=== PATIENT | male | born 1935 | race Caucasian/White ===

== ENCOUNTER 2016-07-06 12:00 | Inpatient (IN) | payer MEDICARE ==
[~2016-07-06] VITALS: Ht 175.3 cm; Wt 79.1 kg
[2016-07-06] VITALS (7 sets, daily range): BP systolic 114–145; BP diastolic 67–81; PULSE 66–99; RESP 16–18; TEMP 97.5–97.9; O2SAT 91–97
[~2016-07-06 12:00] MED LIST: GEMF600T PO
[2016-07-06] MEDS ORDERED: SODIUM CHLOR 0.9% 1000 ML INJ 1,000 ML IV SCH (12:07)
[2016-07-06] MEDS ORDERED: SODIUM CHLORIDE 0.9% FLUSH 5 ML FLUSH IVF PRN (12:15)
[2016-07-06] MEDS ORDERED: ONDANSETRON HCL 4 MG/2 ML VIAL IVP ONE (12:15)
[2016-07-06 12:49] LABS: AUTOMATED NEUTROPHIL # 2.9 TH/MM3 (1.8-7.7); BASOPHIL % 0.4 % (0.0-2.0); EOSINOPHIL # 0.1 TH/MM3 (0-0.4); HEMATOCRIT 40.1 % (39.0-51.0); HEMO FLAGS DIFF FINAL; LYMPH % 29.1 % (9.0-44.0); LYMPHOCYTE # 1.4 TH/MM3 (1.0-4.8); MEAN CELL VOLUME 91.1 FL (80.0-100.0); MEAN CORPUSCULAR HEMOGLOBIN 31.5 PG (27.0-34.0); MEAN CORPUSCULAR HGB CONC 34.6 % (32.0-36.0); MONO % 6.3 % (0.0-8.0); NEUT % 62.2 % (16.0-70.0); PLATELET COUNT 169 TH/MM3 (150-450); RED BLOOD COUNT 4.41 MIL/MM3 (4.50-5.90); WHITE BLOOD COUNT 4.7 TH/MM3 (4.0-11.0)
[2016-07-06 12:54] LABS: APTT (PATIENT) 23.9 SEC (24.3-30.1); PROTHROMBIN TIME - PATIENT 11.1 SEC (9.8-11.6)
[2016-07-06 13:09] LABS: ALT (GPT) 16 U/L (12-78); ANION GAP 8 MEQ/L (5-15); AST (GOT) 15 U/L (15-37); BLOOD UREA NITROGEN 15 MG/DL (7-18); CHLORIDE 108 MEQ/L (98-107); GLOMERULAR FILTRATION RATE 60 ML/MIN (>89); POTASSIUM 3.8 MEQ/L (3.5-5.1); SODIUM (NA) 139 MEQ/L (136-145)
[2016-07-06 13:12] LABS: ALKALINE PHOSPHATASE 87 U/L (45-117); TOTAL BILIRUBIN ADULT 0.5 MG/DL (0.2-1.0)
[2016-07-06 13:18] LABS: BACTERIA, URINE RARE /hpf; BLOOD, URINE MOD (NEG); GLUCOSE,URINE NEG (NEG); KETONE, URINE NEG (NEG); NITRITE,URINE NEG (NEG); PH, URINE 5.5 (5.0-8.5); URINE COLOR YELLOW (YELLW/STRAW)
[2016-07-06 13:20] LABS: COMMENT (UR) CULT NOT INDICATED; CULTURE IF INDICATED CULT NOT INDICATED
--- NOTE | 2016-07-06 13:22 | PD ---
HPI Chief Complaint: General Weakness Time Seen by Provider: 12:07 Travel History International Travel<30 days: No Contact w/Intl Traveler<30days: No Traveled to known affect area: No History of Present Illness HPI This is an 81-year-old male who has a history of prostate currently not receiving treatment who presents to the emergency department with vomiting for 2 days, constant, associated with generalized weakness, lightheadedness and fatigue. He says his vomiting has been bilious. He denies fevers or chills. He says he has epigastric abdominal pain, moderate severity. He says that 9 months ago he was being treated for prostate cancer by he elected to discontinue treatment. For the last a month he's been feeling very fatigued and lethargic and has had decreased appetite. PFSH Past Medical History Hx Anticoagulant Therapy: Yes (325 ASA DAILY) Blood Disorders: No Heart Rhythm Problems: No Cancer: Yes (prostate) Cardiovascular Problems: No High Cholesterol: Yes Chest Pain: No Congestive Heart Failure: No Diminished Hearing: No Endocrine: No Genitourinary: Yes (ENLARGED PROSTATE) Immune Disorder: No Musculoskeletal: No Neurologic: No Psychiatric: No Reproductive: No Respiratory: No Past Surgical History Genitourinary Surgery: Yes (PROSTATE BIOPSY) Social History Alcohol Use: No Tobacco Use: No Substance Use: No Allergies-Medications (Allergen,Severity, Reaction): Coded Allergies: No Known Allergies (Unverified , 04/28/16) Reported Meds & Prescriptions Reported Meds & Active Scripts Active Reported Gemfibrozil 600 Mg Tab 600 Mg PO BIDAC Take 30 minutes prior to breakfast and dinner. Review of Systems Except as stated in HPI: all other systems reviewed are Neg Physical Exam Narrative GENERAL: Frail elderly male, ill-appearing SKIN: Warm and dry. HEAD: Atraumatic. Normocephalic. EYES: Pupils equal and round. No injection or drainage. ENT: Dry mucous membranes. NECK: Trachea midline. CARDIOVASCULAR: Regular rate and rhythm. No murmur appreciated. RESPIRATORY: Clear to auscultation. Breath sounds equal bilaterally. GASTROINTESTINAL: Abdomen soft, mildly tender to palpation in the epigastrium with no rebound or guarding. MUSCULOSKELETAL: No obvious deformities. NEUROLOGICAL: Awake and alert. No obvious cranial nerve deficits. Moving all extremities. PSYCHIATRIC: Appropriate mood and affect; insight and judgment normal. Data Data Last Documented VS Vital Signs Date Time Temp Pulse Resp B/P Pulse Ox O2 Delivery O2 Flow Rate FiO2 07/06/16 13:04 95 16 114/81 95 Nasal Cannula 2 07/06/16 12:03 97.5 Orders Complete Blood Count With Diff (07/06/16 12:07) Comprehensive Metabolic Panel (07/06/16 12:07) Lipase (07/06/16 12:07) Lactic Acid (07/06/16 12:07) Prothrombin Time / Inr (Pt) (07/06/16 12:07) Act Partial Throm Time (Ptt) (07/06/16 12:07) Urinalysis - C+S If Indicated (07/06/16 12:07) Ct Abd/Pel W Iv Contrast(Rout) (07/06/16 12:07) Iv Access Insert/Monitor (07/06/16 12:07) Ecg Monitoring (07/06/16 12:07) Oximetry (07/06/16 12:07) Ondansetron Inj (Zofran Inj) (07/06/16 12:15) Sodium Chlor 0.9% 1000 Ml Inj (Ns 1000 M (07/06/16 12:07) Sodium Chloride 0.9% Flush (Ns Flush) (07/06/16 12:15) Electrocardiogram (07/06/16 ) Troponin I (07/06/16 12:07) Cath For Specimen (07/06/16 12:07) Chest, Single Ap (07/06/16 ) Iohexol 350 Inj (Omnipaque 350 Inj) (07/06/16 14:10) Admit Order (Ed Use Only) (07/06/16 16:02) Labs Laboratory Tests Test 07/06/16 07/06/16 07/06/16 12:21 12:24 12:32 White Blood Count 4.7 TH/MM3 Red Blood Count 4.41 MIL/MM3 Hemoglobin 13.9 GM/DL Hematocrit 40.1 % Mean Corpuscular Volume 91.1 FL Mean Corpuscular Hemoglobin 31.5 PG Mean Corpuscular Hemoglobin 34.6 % Concent Red Cell Distribution Width 14.0 % Platelet Count 169 TH/MM3 Mean Platelet Volume 7.5 FL Neutrophils (%) (Auto) 62.2 % Lymphocytes (%) (Auto) 29.1 % Monocytes (%) (Auto) 6.3 % Eosinophils (%) (Auto) 2.0 % Basophils (%) (Auto) 0.4 % Neutrophils # (Auto) 2.9 TH/MM3 Lymphocytes # (Auto) 1.4 TH/MM3 Monocytes # (Auto) 0.3 TH/MM3 Eosinophils # (Auto) 0.1 TH/MM3 Basophils # (Auto) 0.0 TH/MM3 CBC Comment DIFF FINAL Differential Comment Prothrombin Time 11.1 SEC Prothromb Time International 1.0 RATIO Ratio Activated Partial 23.9 SEC Thromboplast Time Sodium Level 139 MEQ/L Potassium Level 3.8 MEQ/L Chloride Level 108 MEQ/L Carbon Dioxide Level 23.0 MEQ/L Anion Gap 8 MEQ/L Blood Urea Nitrogen 15 MG/DL Creatinine 1.17 MG/DL Estimat Glomerular Filtration 60 ML/MIN Rate Random Glucose 170 MG/DL Calcium Level 8.2 MG/DL Total Bilirubin 0.5 MG/DL Aspartate Amino Transf 15 U/L (AST/SGOT) Alanine Aminotransferase 16 U/L (ALT/SGPT) Alkaline Phosphatase 87 U/L Troponin I LESS THAN 0.02 NG/ML Total Protein 6.6 GM/DL Albumin 3.2 GM/DL Lipase 231 U/L Lactic Acid Level 1.8 mmol/L Urine Color YELLOW Urine Turbidity CLEAR Urine pH 5.5 Urine Specific [place] 1.009 Urine Protein TRACE mg/dL Urine Glucose (UA) NEG mg/dL Urine Ketones NEG mg/dL Urine Occult Blood MOD Urine Nitrite NEG Urine Bilirubin NEG Urine Urobilinogen LESS THAN 2.0 MG/DL Urine Leukocyte Esterase NEG Urine RBC 18 /hpf Urine WBC LESS THAN 1 /hpf Urine Bacteria RARE /hpf Microscopic Urinalysis Comment CULT NOT INDICATED MDM Medical Decision Making Medical Screen Exam Complete: Yes Emergency Medical Condition: Yes Interpretation(s) Afebrile, no tachycardia, normotensive No leukocytosis Electrolytes within normal limits Lactic acid 1.8 Troponin normal Lipase normal Urinalysis: Red blood cells in the urine Differential Diagnosis Pancreatitis, cholecystitis, gastritis, gastroenteritis, gastric outlet obstruction, bowel obstruction Narrative Course This is an 81-year-old male who presents to the emergency department with vomiting and generalized weakness for the past 2 days. He is very well- appearing on exam, dry with skin tenting and dry mucous membranes. He was placed on a monitor and an IV was established. He was given IV hydration and antiemetics. He continues to vomit in the emergency department. He has a normal neurologic exam and doesn't complain of headache. CT abdomen and pelvis was obtained which demonstrates multiple incidental findings but no etiology of the patient's symptoms. I think it's reasonable to place the patient in observation for continued IV hydration and symptomatic control. Diagnosis Primary Impression: Vomiting Qualified Code: R11.14 - Bilious vomiting with nausea Admitting Information Admitting Physician Requests: Observation Kelsey Arguelles MD Jul 06, 2016 13:22
[2016-07-06] MEDS ORDERED: IOHEXOL 350 MG/ML 10 ML VIAL (for RAD DIAG) IV ONE (14:10)
--- NOTE | 2016-07-06 15:03 | RADRPT ---
EXAM DATE/TIME: 07/06/2016 13:23 [facility] COMPARISON: No previous studies available for comparison. INDICATIONS : Short of breath, vomiting. MEDICAL HISTORY : None. SURGICAL HISTORY : CABG. ENCOUNTER: Initial ACUITY: 1 day PAIN SCORE: 0/10 LOCATION: Left chest FINDINGS: Median sternotomy wires from previous CABG are noted. Heart is within normal limits in size. There is no evidence of acute air space disease significant ingestion or pleural effusion. CONCLUSION: No acute disease. Status post CABG Jared Wilcox MD on July 06, 2016 at 15:01 Board Certified Radiologist. This report was verified electronically.
--- NOTE | 2016-07-06 15:31 | RADRPT ---
EXAM DATE/TIME: 07/06/2016 14:00 [facility] COMPARISON: No previous studies available for comparison. INDICATIONS : Nausea and vomiting. Weakness. IV CONTRAST: 85 cc Omnipaque 350 (iohexol) IV ORAL CONTRAST: No oral contrast ingested. RADIATION DOSE: 9.96 CTDIvol (mGy) MEDICAL HISTORY : Carcinoma, prostate. SURGICAL HISTORY : Cholecystectomy. ENCOUNTER: Initial ACUITY: 2 days PAIN SCALE: 0/10 LOCATION: Abdomen TECHNIQUE: Volumetric scanning of the abdomen and pelvis was performed. Using automated exposure control and adjustment of the mA and/or kV according to patient size, radiation dose was kept as low as reasonably achievable to obtain optimal diagnostic quality images. FINDINGS: There is a 1 cm hyperdensity seen at the posterior medial superior aspect of the right lobe of the liver. This is nonspecific. The patient is status post cholecystectomy. There are come coarse calcifications seen along the posterior margin of the spleen. This is thought to be chronic. No mass effect is seen. The pancreas and adrenal glands are normal. There is a 2 cm cyst at the mid left kidney. There do appear to be areas of cortical thinning of lateral mid right kidney likely fro m prior renal infarction. The kidneys appear otherwise normal. There is no hydronephrosis or signifi cant surrounding inflammatory change. There is a 4.7 cm abdominal aortic aneurysm. There is no sign of rupture. There is aneurysmal dilat ation of the common iliac arteries. There are diverticula seen in the colon being most numerous in the sigmoid region. There is some hyp ertrophy or the sigmoid colon. Significant surrounding inflammatory change is not clearly seen. Pro static calcifications are present. The patient does have 1.4 cm area of calcification at the posteri or left side of the bladder likely representing a bladder stone. There is some increased parenchymal density identified at the lung bases being much more prominent on the left. There is some degenerative change at the lower lumbar spine. There does appear to be a s ubacute area of fracturing at the inferior right pubic rami. There is some callus formation. CONCLUSION: 1. 4.7 cm abdominal aortic aneurysm without rupture. 2. Nonspecific 1 cm hyperdensity identified in the liver. Statistically it likely represents a cyst or hemangioma but again it is nonspecific on this solitary CT examination. 3. Status post cholecystectomy. 4. Subacute fracturing at the anterior inferior pubic rami on the right. This could be an insufficie ncy fracture if the patient does not have a corresponding history of trauma. 5. 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 6. Colonic diverticula being most numerous in the sigmoid region. There is some hypertrophy in the si gmoid region. Cj Lo MD on July 06, 2016 at 15:16 Board Certified Radiologist. This report was verified electronically.
[2016-07-06] MEDS ORDERED: ONDANSETRON HCL 4 MG/2 ML VIAL IV PUSH PRN (16:15)
[2016-07-06] MEDS: PANTOPRAZOLE SODIUM 40 MG VIAL IV PUSH SCH (16:22)
[2016-07-06] MEDS: SODIUM CHLOR 0.9% 1000 ML INJ 1,000 ML IV SCH (16:22)
--- NOTE | 2016-07-06 17:02 | HHI.HP ---
HPI Service [facility] Primary Care Physician Unknown Admission Diagnosis vomiting Diagnoses: Chief Complaint: WEAKNESS, N/V (Linsey Dumas) Travel History International Travel<30 Days: No Contact w/Intl Traveler <30 Da: No Traveled to Known Affected Are: No (Linsey Dumas) History of Present Illness This is a pleasant 80-year-old female with hx of Ramin 8 prostate cancer in the spring, metastatic work up negative. Patient was started on androgen deprivation therapy with Lupron injections and was only able to complete 4 months of therapy but he stopped as he developed generalized weakness. His PSA has increased but he has continued to refuse Lupron injections. He follows up with Dr. Christianson and Dr. Mi. Most recently, he went to see Dr. Mi and he discussed possible surgery or radiation versus watchful waiting. Pt. opted to just monitor as he is very weak and fatigue. He doesn't want to continue following up with Dr. Mi. Dr. Mi checked B12 and gave him a short trial of B12 with minimal response. Pt presented to ED weakness and nausea and vomiting for the last 2 days. He has been dizzy, poor appetite. No abdominal pain, vomitus is bile colored, no diarrhea, no urinary symptoms other than urinary frequency which is unchanged. No fever, no chills. Has noted mild dyspnea with exertion, no CP. 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 He lives alone but has a significant other. States he takes care of his house and was very active. He is very frustrated about the weakness, has seen PCP and has no definitive answers. Two night ago he climbed onto his roof and after that was very tired and had diffuse body aches. Denies any falls, no recent injuries. Laboratory work up completed in the ED is unremarkable, UA without evidence of infection. Hemodynamically stable, no fevers. Last Impressions Abdomen/Pelvis CT 07/06/16 1207 Signed Impressions: Service Date/Time: Wednesday, July 06, 2016 14:00 - CONCLUSION: 1. 4.7 cm abdominal aortic aneurysm without rupture. 2. Nonspecific 1 cm hyperdensity identified in the liver. Statistically it likely represents a cyst or hemangioma but again it is nonspecific on this solitary CT examination. 3. Status post cholecystectomy. 4. Subacute fracturing at the anterior inferior pubic rami on the right. This could be an insufficiency fracture if the patient does not have a corresponding history of trauma. 5. 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 6. Colonic diverticula being most numerous in the sigmoid region. There is some hypertrophy in the sigmoid region. Cj Lo MD Chest X-Ray 07/06/16 0000 Signed Impressions: Service Date/Time: Wednesday, July 06, 2016 13:23 - CONCLUSION: No acute disease. Status post CABG Jared Wilcox MD Review of previous medical records noted a CT of abdomen as OP in August and showed AA, 4.5 cm. As noted above, subacute fracture of right anterior pubic rami noted, pt denies any recent injury, no falls. Pt. was given IVF, antiemetics. He is feeling improved, no longer having nausea. Pt. admitted for further evaluation and treatment. (Linsey Dumas) Review of Systems Constitutional: COMPLAINS OF: Fatigue, Dizziness, Change in appetite, DENIES: Diaphoretic episodes, Fever, Weight gain, Weight loss, Chills, Night Sweats Endocrine: DENIES: Heat/cold intolerance, Polydipsia, Polyuria, Polyphagia Eyes: DENIES: Blurred vision, Diplopia, Eye inflammation, Eye pain, Vision loss , Photosensitivity, Double Vision Ears, nose, mouth, throat: DENIES: Tinnitus, Hearing loss, Vertigo, Nasal discharge, Oral lesions, Throat pain, Hoarseness, Ear Pain, Running Nose, Epistaxis, Sinus Pain, Toothache, Odynophagia Respiratory: DENIES: Apneas, Cough, Snoring, Wheezing, Hemoptysis, Sputum production, Shortness of breath Cardiovascular: COMPLAINS OF: Dyspnea on Exertion, DENIES: Chest pain, Palpitations, Syncope, PND, Lower Extremity Edema, Orthopnea, Claudication Gastrointestinal: COMPLAINS OF: Nausea, Vomiting, DENIES: Abdominal pain, Black stools, Bloody stools, Constipation, Diarrhea, Difficulty Swallowing, Anorexia Genitourinary: DENIES: Sexual dysfunction, Urinary frequency, Urinary incontinence, Urgency, Hematuria, Dysuria, Nocturia, Penile Discharge, Testicular Pain, Testicular Swelling Musculoskeletal: DENIES: Joint pain, Muscle aches, Stiffness, Joint Swelling, Back pain, Neck pain Integumentary: DENIES: Abnormal pigmentation, Nail changes, Pruritus, Rash Hematologic/lymphatic: DENIES: Bruising, Lymphadenopathy Immunologic/allergic: DENIES: Eczema, Urticaria Neurologic: DENIES: Abnormal gait, Headache, Localized weakness, Paresthesias, Seizures, Speech Problems, Tremor, Poor Balance Psychiatric: DENIES: Anxiety, Confusion, Mood changes, Depression, Hallucinations, Agitation, Suicidal Ideation, Homicidal Ideation, Delusions ( Linsey Dumas) Past Family Social History Past Medical History Prostate cancer dx 2015, completed androgen deprivation therapy with Lupron injections and was only able to complete 4 months of therapy due to severe weakness. Recommended to f/u oncology Dr. Mi for possible chemo but he declined. Had CT that did not show metastasis Hyperlipidemia cataracts. Admitted with hematuria after TRUS in August 2015. 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 atrial fibrillation Past Surgical History Cholecystectomy TRUS with biopsy 08/21/2015 CABG right eye cataract removal Reported Medications Reported Meds & Active Scripts Active Reported Gemfibrozil 600 Mg Tab 600 Mg PO BIDAC Take 30 minutes prior to breakfast and dinner. (Linsey Dumas) Allergies: Coded Allergies: No Known Allergies (Unverified , 04/28/16) Active Ordered Medications Inpatient Medications IV Flush 2 ml 2 ml UNSCH PRN IVF FLUSH AFTER USING IV ACCESS; Start 07/06/16 at 12:15 Ondansetron HCl (Zofran Inj) 4 mg Q8HR PRN IV PUSH N/V; Start 07/06/16 at 16:15 Pantoprazole Sodium (Protonix Inj) 40 mg Q24H IV PUSH Last administered on 07/06t 16:22; Start 07/06/16 at 16:15 Sodium Chloride (NS 1000 ml Inj) 1,000 ml @ 100 mls/hr Q10H IV Last administered on 07/06/16 16:22; Start 07/06/16 at 16:15 Family History Mother from aneurysm complications Father from Alzheimer complications Social History 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 He smoked 1-1/2 pack per day for 20 years, quit in 1983. No alcohol,or illegal drug use. (Linsey Dumas) Physical Exam Vital Signs Vital Signs Date Time Temp Pulse Resp B/P Pulse Ox O2 Delivery O2 Flow Rate FiO2 07/06/16 16:17 81 18 137/78 95 Room Air 07/06/16 13:04 95 16 114/81 95 Nasal Cannula 2 07/06/16 12:28 94 Nasal Cannula 2 07/06/16 12:17 99 16 145/81 93 Nasal Cannula 2 07/06/16 12:03 97.5 66 16 145/81 91 Physical Exam GENERAL: This is a well-nourished, well-developed patient, in no apparent distress. SKIN: No rashes, ecchymoses or lesions. Cool and dry. HEAD: Atraumatic. Normocephalic. No temporal or scalp tenderness. EYES: Right eyer with erythematous conjunctive, blind. Left eye with reactive pupil. ENT: Nose without bleeding, purulent drainage or septal hematoma. Throat without erythema, tonsillar hypertrophy or exudate. Uvula midline. Airway patent. NECK: Trachea midline. No JVD or lymphadenopathy. Supple, nontender, no meningeal signs. CARDIOVASCULAR: Regular rate and rhythm without murmurs, gallops, or rubs. RESPIRATORY: Clear to auscultation. Breath sounds equal bilaterally. No wheezes , rales, or rhonchi. GASTROINTESTINAL: Abdomen soft, non-tender, nondistended. No hepato-splenomegaly , or palpable masses. No guarding. MUSCULOSKELETAL: Extremities without clubbing, cyanosis, or edema. No joint tenderness, effusion, or edema noted. No calf tenderness. Negative Homans sign bilaterally. NEUROLOGICAL: Awake and alert. Cranial nerves II through XII intact. Motor and sensory grossly within normal limits. Five out of 5 muscle strength in all muscle groups. Normal speech. Laboratory Laboratory Tests Test 07/06/16 07/06/16 07/06/16 12:21 12:24 12:32 White Blood Count 4.7 Red Blood Count 4.41 Hemoglobin 13.9 Hematocrit 40.1 Mean Corpuscular Volume 91.1 Mean Corpuscular Hemoglobin 31.5 Mean Corpuscular Hemoglobin 34.6 Concent Red Cell Distribution Width 14.0 Platelet Count 169 Mean Platelet Volume 7.5 Neutrophils (%) (Auto) 62.2 Lymphocytes (%) (Auto) 29.1 Monocytes (%) (Auto) 6.3 Eosinophils (%) (Auto) 2.0 Basophils (%) (Auto) 0.4 Neutrophils # (Auto) 2.9 Lymphocytes # (Auto) 1.4 Monocytes # (Auto) 0.3 Eosinophils # (Auto) 0.1 Basophils # (Auto) 0.0 CBC Comment DIFF FINAL Differential Comment Prothrombin Time 11.1 Prothromb Time International 1.0 Ratio Activated Partial 23.9 Thromboplast Time Sodium Level 139 Potassium Level 3.8 Chloride Level 108 Carbon Dioxide Level 23.0 Anion Gap 8 Blood Urea Nitrogen 15 Creatinine 1.17 Estimat Glomerular Filtration 60 Rate Random Glucose 170 Calcium Level 8.2 Total Bilirubin 0.5 Aspartate Amino Transf 15 (AST/SGOT) Alanine Aminotransferase 16 (ALT/SGPT) Alkaline Phosphatase 87 Troponin I LESS THAN 0.02 Total Protein 6.6 Albumin 3.2 Lipase 231 Lactic Acid Level 1.8 Urine Color YELLOW Urine Turbidity CLEAR Urine pH 5.5 Urine Specific [place] 1.009 Urine Protein TRACE Urine Glucose (UA) NEG Urine Ketones NEG Urine Occult Blood MOD Urine Nitrite NEG Urine Bilirubin NEG Urine Urobilinogen LESS THAN 2.0 Urine Leukocyte Esterase NEG Urine RBC 18 Urine WBC LESS THAN 1 Urine Bacteria RARE Microscopic Urinalysis Comment CULT NOT INDICATED (iLnsey Dumas) Result Diagram: 07/06/16 1221 07/06/16 1221 Imaging Last Impressions Abdomen/Pelvis CT 07/06/16 1207 Signed Impressions: Service Date/Time: Wednesday, July 06, 2016 14:00 - CONCLUSION: 1. 4.7 cm abdominal aortic aneurysm without rupture. 2. Nonspecific 1 cm hyperdensity identified in the liver. Statistically it likely represents a cyst or hemangioma but again it is nonspecific on this solitary CT examination. 3. Status post cholecystectomy. 4. Subacute fracturing at the anterior inferior pubic rami on the right. This could be an insufficiency fracture if the patient does not have a corresponding history of trauma. 5. 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 6. Colonic diverticula being most numerous in the sigmoid region. There is some hypertrophy in the sigmoid region. Cj Lo MD Chest X-Ray 07/06/16 0000 Signed Impressions: Service Date/Time: Wednesday, July 06, 2016 13:23 - CONCLUSION: No acute disease. Status post CABG Jared Wilcox MD (Linsey Dumas) Assessment and Plan Problem List: (1) Weakness (2) Nausea & vomiting (3) Dyspnea (4) Prostate cancer (5) Abdominal aneurysm (6) Blind right eye (7) Hx of atrial fibrillation, no current medication (8) Anorexia Assessment and Plan Admit to Dr. Schaffer 81 year old male with hx of prostate cancer, was receiving Lupron injections x 4 months which he stopped due to severe weakness. He has declined further treatment including surgery, radiation and chemo. Presented to ED with worsening weakness, developed N&V x 2 days, dizziness, [place]. Noted dehydrated, given IVF and antiemetics. Work up so far negative. -Continue with IVF -monitor electrolytes -PT for evaluation -Antiemetics PRN -check 2D echo -Clear liquid diet Weakness poss. secondary to Lupron -PT eval -Check B12, TSH Prostate cancer, no longer having treatments -monitor for now. AA, 4.7 cm, stable -monitor BP CT findings of subacute fracturing at the anterior inferior pubic rami on the right, no recent falls or injuries -PT eval Hx afib, stable, SR -monitor Possible depression, secondary to declining health -monitor for now CM for discharge planning for [facility] Home medications reviewed, initiated as indicated SCDs for DVT prophylaxis Plan of care discussed with pt, attending and RN. Further management of the patient will be dependent on the hospital course. This patient was seen by myself and Dr. Schaffer, this H/P is written on his behalf. (Linsey Dumas) Assessment and Plan PT is seen & Examined d/w PT d/w ER d/w Linsey see orders see H&P will f/u Paul Schaffer MD Jul 06, 2016 17:48 (Paul Schaffer MD) Problem Qualifiers (1) Nausea & vomiting: Qualified Code: R11.2 - Non-intractable vomiting with nausea, unspecified vomiting type (2) Dyspnea: Qualified Code: R06.09 - Dyspnea on exertion Linsey Dumas Jul 06, 2016 17:02 Paul Schaffer MD Jul 07, 2016 09:29
--- NOTE | 2016-07-06 17:48 | HHI.PR ---
Objective Objective Results - Vital Signs Date Time Temp Pulse Resp B/P Pulse Ox O2 Delivery O2 Flow Rate FiO2 07/06/16 16:17 81 18 137/78 95 Room Air 07/06/16 13:04 95 16 114/81 95 Nasal Cannula 2 07/06/16 12:28 94 Nasal Cannula 2 07/06/16 12:17 99 16 145/81 93 Nasal Cannula 2 07/06/16 12:03 97.5 66 16 145/81 91 Result Diagram: 07/06/16 1221 07/06/16 1221 Other Results Laboratory Tests Test 07/06/16 07/06/16 07/06/16 12:21 12:24 12:32 White Blood Count 4.7 Red Blood Count 4.41 Hemoglobin 13.9 Hematocrit 40.1 Mean Corpuscular Volume 91.1 Mean Corpuscular Hemoglobin 31.5 Mean Corpuscular Hemoglobin 34.6 Concent Red Cell Distribution Width 14.0 Platelet Count 169 Mean Platelet Volume 7.5 Neutrophils (%) (Auto) 62.2 Lymphocytes (%) (Auto) 29.1 Monocytes (%) (Auto) 6.3 Eosinophils (%) (Auto) 2.0 Basophils (%) (Auto) 0.4 Neutrophils # (Auto) 2.9 Lymphocytes # (Auto) 1.4 Monocytes # (Auto) 0.3 Eosinophils # (Auto) 0.1 Basophils # (Auto) 0.0 CBC Comment DIFF FINAL Differential Comment Prothrombin Time 11.1 Prothromb Time International 1.0 Ratio Activated Partial 23.9 Thromboplast Time Sodium Level 139 Potassium Level 3.8 Chloride Level 108 Carbon Dioxide Level 23.0 Anion Gap 8 Blood Urea Nitrogen 15 Creatinine 1.17 Estimat Glomerular Filtration 60 Rate Random Glucose 170 Calcium Level 8.2 Total Bilirubin 0.5 Aspartate Amino Transf 15 (AST/SGOT) Alanine Aminotransferase 16 (ALT/SGPT) Alkaline Phosphatase 87 Troponin I LESS THAN 0.02 Total Protein 6.6 Albumin 3.2 Lipase 231 Lactic Acid Level 1.8 Urine Color YELLOW Urine Turbidity CLEAR Urine pH 5.5 Urine Specific [place] 1.009 Urine Protein TRACE Urine Glucose (UA) NEG Urine Ketones NEG Urine Occult Blood MOD Urine Nitrite NEG Urine Bilirubin NEG Urine Urobilinogen LESS THAN 2.0 Urine Leukocyte Esterase NEG Urine RBC 18 Urine WBC LESS THAN 1 Urine Bacteria RARE Microscopic Urinalysis Comment CULT NOT INDICATED Physical Exam Physical Exam PT is seen & Examined d/w PT d/w ER d/w Linsey see orders see H&P will f/u Paul Schaffer MD Jul 06, 2016 17:48
[2016-07-07] MEDS: SODIUM CHLOR 0.9% 1000 ML INJ 1,000 ML IV SCH ×2 (01:20→16:28)
[2016-07-07 04:35] LABS: HEMATOCRIT 37.6 % (39.0-51.0); MEAN CELL VOLUME 91.6 FL (80.0-100.0); MEAN CORPUSCULAR HEMOGLOBIN 31.8 PG (27.0-34.0); MEAN CORPUSCULAR HGB CONC 34.7 % (32.0-36.0); PLATELET COUNT 182 TH/MM3 (150-450); RED CELL DISTRIBUTION WIDTH 14.2 % (11.6-17.2); REVIEW FLAG FINAL; WHITE BLOOD COUNT 6.2 TH/MM3 (4.0-11.0)
[2016-07-07 04:46] VITALS: BP 97/53; PULSE 94; RESP 16; TEMP 97.4; O2SAT 93
[2016-07-07 08:06] VITALS: BP 108/62; PULSE 92; RESP 18; TEMP 98.1; O2SAT 93
--- NOTE | 2016-07-07 08:10 | HHI.PR ---
Subjective Remarks no n/v feels tired afraid to get up and walk "I don't have strength" states he has felt some depression over losing sight but denies SI/HI no fever no cp no sob no abd. pain tolerated liquids well voiding ok Objective Objective Results - Vital Signs Date Time Temp Pulse Resp B/P Pulse Ox O2 Delivery O2 Flow Rate FiO2 07/07/16 04:46 97.4 94 16 97/53 93 07/06/16 23:39 97.9 92 16 120/76 96 07/06/16 20:31 97.5 88 18 129/67 97 07/06/16 16:17 81 18 137/78 95 Room Air 07/06/16 13:04 95 16 114/81 95 Nasal Cannula 2 07/06/16 12:28 94 Nasal Cannula 2 07/06/16 12:17 99 16 145/81 93 Nasal Cannula 2 07/06/16 12:03 97.5 66 16 145/81 91 Result Diagram: 07/07/16 0351 07/06/16 1221 Imaging Last Impressions Abdomen/Pelvis CT 07/06/16 1207 Signed Impressions: Service Date/Time: Wednesday, July 06, 2016 14:00 - CONCLUSION: 1. 4.7 cm abdominal aortic aneurysm without rupture. 2. Nonspecific 1 cm hyperdensity identified in the liver. Statistically it likely represents a cyst or hemangioma but again it is nonspecific on this solitary CT examination. 3. Status post cholecystectomy. 4. Subacute fracturing at the anterior inferior pubic rami on the right. This could be an insufficiency fracture if the patient does not have a corresponding history of trauma. 5. 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 6. Colonic diverticula being most numerous in the sigmoid region. There is some hypertrophy in the sigmoid region. Cj Lo MD Chest X-Ray 07/06/16 0000 Signed Impressions: Service Date/Time: Wednesday, July 06, 2016 13:23 - CONCLUSION: No acute disease. Status post CABG Jared Wilcox MD Other Results Laboratory Tests Test 07/06/16 07/06/16 07/06/16 07/07/16 12:21 12:24 12:32 03:51 White Blood Count 4.7 6.2 Red Blood Count 4.41 4.10 Hemoglobin 13.9 13.0 Hematocrit 40.1 37.6 Mean Corpuscular Volume 91.1 91.6 Mean Corpuscular Hemoglobin 31.5 31.8 Mean Corpuscular Hemoglobin 34.6 34.7 Concent Red Cell Distribution Width 14.0 14.2 Platelet Count 169 182 Mean Platelet Volume 7.5 7.4 Neutrophils (%) (Auto) 62.2 Lymphocytes (%) (Auto) 29.1 Monocytes (%) (Auto) 6.3 Eosinophils (%) (Auto) 2.0 Basophils (%) (Auto) 0.4 Neutrophils # (Auto) 2.9 Lymphocytes # (Auto) 1.4 Monocytes # (Auto) 0.3 Eosinophils # (Auto) 0.1 Basophils # (Auto) 0.0 CBC Comment DIFF FINAL Differential Comment Prothrombin Time 11.1 Prothromb Time International 1.0 Ratio Activated Partial 23.9 Thromboplast Time Sodium Level 139 Potassium Level 3.8 Chloride Level 108 Carbon Dioxide Level 23.0 Anion Gap 8 Blood Urea Nitrogen 15 Creatinine 1.17 Estimat Glomerular Filtration 60 Rate Random Glucose 170 Calcium Level 8.2 Total Bilirubin 0.5 Aspartate Amino Transf 15 (AST/SGOT) Alanine Aminotransferase 16 (ALT/SGPT) Alkaline Phosphatase 87 Troponin I LESS THAN 0.02 Total Protein 6.6 Albumin 3.2 Lipase 231 Lactic Acid Level 1.8 Urine Color YELLOW Urine Turbidity CLEAR Urine pH 5.5 Urine Specific [place] 1.009 Urine Protein TRACE Urine Glucose (UA) NEG Urine Ketones NEG Urine Occult Blood MOD Urine Nitrite NEG Urine Bilirubin NEG Urine Urobilinogen LESS THAN 2.0 Urine Leukocyte Esterase NEG Urine RBC 18 Urine WBC LESS THAN 1 Urine Bacteria RARE Microscopic Urinalysis Comment CULT NOT INDICATED Vitamin B12 Level 546 Thyroid Stimulating Hormone 2.040 3rd Gen Random Cortisol 14.6 ROS General: Fatigue, Weakness, No: Other HEENT: No: Sore Throat, Dysphagia Cardiac: No: Chest Pain, Edema, Palpitations Pulmonary: No: Cough, SOB, Wheezing GI: No: Abdominal Pain, BM, Diarrhea, N/V /AUTOPSY ASSISTANT: No: Dysuria, Urgency Neuro/MS: No: Lightheaded, Confusion Psych: No: Anxiety, Depression Skin: No: Itching, Rash Physical Exam Physical Exam GENERAL: This is a well-nourished, well-developed patient, in no apparent distress. SKIN: No rashes, ecchymoses or lesions. Cool and dry. HEAD: Atraumatic. Normocephalic. No temporal or scalp tenderness. EYES: Right eyer with erythematous conjunctive, blind. Left eye with reactive pupil. ENT: Nose without bleeding, purulent drainage or septal hematoma. Throat without erythema, tonsillar hypertrophy or exudate. Uvula midline. Airway patent. NECK: Trachea midline. No JVD or lymphadenopathy. Supple, nontender, no meningeal signs. CARDIOVASCULAR: Regular rate and rhythm without murmurs, gallops, or rubs. RESPIRATORY: Clear to auscultation. Breath sounds equal bilaterally. No wheezes , rales, or rhonchi. GASTROINTESTINAL: Abdomen soft, non-tender, nondistended. No hepato-splenomegaly , or palpable masses. No guarding. MUSCULOSKELETAL: Extremities without clubbing, cyanosis, or edema. No joint tenderness, effusion, or edema noted. No calf tenderness. Negative Homans sign bilaterally. NEUROLOGICAL: Awake and alert. Cranial nerves II through XII intact. Motor and sensory grossly within normal limits. Five out of 5 muscle strength in all muscle groups. Normal speech. Urinary Catheter: No Vascular Central Line Catheter: No A/P Diagnosis: (1) Weakness (2) Nausea & vomiting (3) Dyspnea (4) Prostate cancer (5) Abdominal aneurysm (6) Blind right eye (7) Hx of atrial fibrillation, no current medication (8) Anorexia Assessment and Plan 81 year old male with hx of prostate cancer, was receiving Lupron injections x 4 months which he stopped due to severe weakness. He has declined further treatment including surgery, radiation and chemo. Presented to ED with worsening weakness, developed N&V x 2 days, dizziness, [place]. Noted dehydrated, given IVF and antiemetics. Work up so far negative. -IVF to KVO -monitor electrolytes -PT for evaluation-pending -Antiemetics PRN -check 2D echo-pending -adv to heart healthy diet Weakness poss. secondary to Lupron -PT eval -B12, TSH, cortisol okay Prostate cancer, no longer having treatments -monitor for now. AA, 4.7 cm, stable -monitor BP CT findings of subacute fracturing at the anterior inferior pubic rami on the right, no recent falls or injuries -PT eval Hx afib, stable, SR -monitor Possible depression, secondary to declining health -monitor for now -denies SI CM for discharge planning for [facility] SCDs for DVT prophylaxis will evaluate after PT has him ambulate possible dc later today D/W RN D/W Dr. Schaffer D/W pt This patient was seen by myself and Dr. Schaffer, this note is written on his behalf. Problem Qualifiers (1) Nausea & vomiting: Qualified Code: R11.2 - Non-intractable vomiting with nausea, unspecified vomiting type (2) Dyspnea: Qualified Code: R06.09 - Dyspnea on exertion Linsey Dumas Jul 07, 2016 08:10
--- NOTE | 2016-07-07 10:57 | PD.CONS ---
HPI History of Present Illness This is a 81 year old male patient who had the sudden onset of generalized weakness, dizziness, and malaise yesterday when he sat down for breakfast. He states he was feeling fine prior to breakfast, but his symptoms came in so suddenly that he could not stand or walk and felt as if he was going to pass out. He started having nausea and vomiting consisting of the orange juice he had to drink earlier in the morning. He denies any hematemesis. He denies any abdominal pain. He denies any chest pain or shortness of breath. He therefore came to the ER for further evaluation. he denies any heartburn or reflux. He states that his appetite has been poor for the past year. He denies any significant weight loss, but his states he has lost about 10 lbs over the past year. He is not having any changes in bowels with constipation, diarrhea, melena, or hematochezia. He was diagnosed with prostate cancer about a year ago. He was started on Lupron injections, but was only able to complete 4 months of therapy secondary to generalized weakness. He states that he really thought that his weakness would improve after he stopped the Lupron, but that he has continued to have this and just not feeling well. His PSA has increased but he has continued to refuse Lupron injections. He follows up with Dr. Christianson and Dr. Mi. He reports that he is not having any nausea or vomiting at this time, but earlier today, they tried to get him up with a walker and that he was very weak and became dizzy and when he was put back to bed, he had nausea without vomiting. He states that this has resolved with the zofran. He states that he does not have the nausea at rest, but that it is more related to movement and when he is dizzy. He reports that he has recently had some right eye pain- hx of multiple surgeries in his right eye and is currently blind, but denies any ear issues. He states that his ears itch, but no ear pain or congestion. He complains of his head feeling "heavy." ( Kirstie Mcdonnell) PFSH Past Medical History Prostate cancer Hyperlipidemia Cataracts Atrial Fibrillation Past Surgical History Right eye surgery CABG Cholecystectomy Colonoscopy < 5 years ago (Kirstie Mcdonnell) Coded Allergies: No Known Allergies (Unverified , 04/28/16) Medications Allergies Coded Allergies Type Severity Reaction Last Updated Verified No Known Allergies 04/28/16 No Active Scripts Medications Dose Route/Sig Days Date Category Dose Instructions Gemfibrozil 600 Mg Tab 600 Mg PO BIDAC 04/26/16 Reported Take 30 minutes prior to breakfast and dinner. Family History Mother from aneurysm Father had alzheimers Social History Smoked 1.5 PPD x 20 years, quit in 1983. No ETOH. (Kirstie Mcdonnell) Review of Systems Constitutional: COMPLAINS OF: Fatigue, Weight loss, Dizziness, Change in appetite, DENIES: Fever, Chills Ears, nose, mouth, throat: COMPLAINS OF: Vertigo Respiratory: DENIES: Shortness of breath Cardiovascular: DENIES: Chest pain Gastrointestinal: COMPLAINS OF: Nausea, Vomiting, Anorexia, DENIES: Abdominal pain, Black stools, Bloody stools, Constipation, Diarrhea, Heartburn, Hematemesis Musculoskeletal: COMPLAINS OF: Joint pain Integumentary: DENIES: Abnormal pigmentation Hematologic/lymphatic: DENIES: Bruising Neurologic: DENIES: Headache Psychiatric: DENIES: Confusion (Kirstie Mcdonnell) GI Exam Vitals I&O Vital Signs Date Time Temp Pulse Resp B/P Pulse Ox O2 Delivery O2 Flow Rate FiO2 07/07/16 08:06 98.1 92 18 108/62 93 07/07/16 04:46 97.4 94 16 97/53 93 07/06/16 23:39 97.9 92 16 120/76 96 07/06/16 20:31 97.5 88 18 129/67 97 07/06/16 16:17 81 18 137/78 95 Room Air 07/06/16 13:04 95 16 114/81 95 Nasal Cannula 2 07/06/16 12:28 94 Nasal Cannula 2 07/06/16 12:17 99 16 145/81 93 Nasal Cannula 2 07/06/16 12:03 97.5 66 16 145/81 91 Imaging Last Impressions Abdomen/Pelvis CT 07/06/16 1207 Signed Impressions: Service Date/Time: Wednesday, July 06, 2016 14:00 - CONCLUSION: 1. 4.7 cm abdominal aortic aneurysm without rupture. 2. Nonspecific 1 cm hyperdensity identified in the liver. Statistically it likely represents a cyst or hemangioma but again it is nonspecific on this solitary CT examination. 3. Status post cholecystectomy. 4. Subacute fracturing at the anterior inferior pubic rami on the right. This could be an insufficiency fracture if the patient does not have a corresponding history of trauma. 5. 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 6. Colonic diverticula being most numerous in the sigmoid region. There is some hypertrophy in the sigmoid region. Cj Lo MD Chest X-Ray 07/06/16 0000 Signed Impressions: Service Date/Time: Wednesday, July 06, 2016 13:23 - CONCLUSION: No acute disease. Status post CABG Jared Wilcox MD Laboratory Test 07/06/16 07/06/16 07/06/16 07/07/16 12:21 12:24 12:32 03:51 White Blood Count 4.7 TH/MM3 6.2 TH/MM3 Red Blood Count 4.41 MIL/MM3 4.10 MIL/MM3 Hemoglobin 13.9 GM/DL 13.0 GM/DL Hematocrit 40.1 % 37.6 % Mean Corpuscular Volume 91.1 FL 91.6 FL Mean Corpuscular Hemoglobin 31.5 PG 31.8 PG Mean Corpuscular Hemoglobin 34.6 % 34.7 % Concent Red Cell Distribution Width 14.0 % 14.2 % Platelet Count 169 TH/MM3 182 TH/MM3 Mean Platelet Volume 7.5 FL 7.4 FL Neutrophils (%) (Auto) 62.2 % Lymphocytes (%) (Auto) 29.1 % Monocytes (%) (Auto) 6.3 % Eosinophils (%) (Auto) 2.0 % Basophils (%) (Auto) 0.4 % Neutrophils # (Auto) 2.9 TH/MM3 Lymphocytes # (Auto) 1.4 TH/MM3 Monocytes # (Auto) 0.3 TH/MM3 Eosinophils # (Auto) 0.1 TH/MM3 Basophils # (Auto) 0.0 TH/MM3 CBC Comment DIFF FINAL Differential Comment Prothrombin Time 11.1 SEC Prothromb Time International 1.0 RATIO Ratio Activated Partial 23.9 SEC Thromboplast Time Sodium Level 139 MEQ/L Potassium Level 3.8 MEQ/L Chloride Level 108 MEQ/L Carbon Dioxide Level 23.0 MEQ/L Anion Gap 8 MEQ/L Blood Urea Nitrogen 15 MG/DL Creatinine 1.17 MG/DL Estimat Glomerular Filtration 60 ML/MIN Rate Random Glucose 170 MG/DL Calcium Level 8.2 MG/DL Total Bilirubin 0.5 MG/DL Aspartate Amino Transf 15 U/L (AST/SGOT) Alanine Aminotransferase 16 U/L (ALT/SGPT) Alkaline Phosphatase 87 U/L Troponin I LESS THAN 0.02 NG/ML Total Protein 6.6 GM/DL Albumin 3.2 GM/DL Lipase 231 U/L Lactic Acid Level 1.8 mmol/L Urine Color YELLOW Urine Turbidity CLEAR Urine pH 5.5 Urine Specific [place] 1.009 Urine Protein TRACE mg/dL Urine Glucose (UA) NEG mg/dL Urine Ketones NEG mg/dL Urine Occult Blood MOD Urine Nitrite NEG Urine Bilirubin NEG Urine Urobilinogen LESS THAN 2.0 MG/DL Urine Leukocyte Esterase NEG Urine RBC 18 /hpf Urine WBC LESS THAN 1 /hpf Urine Bacteria RARE /hpf Microscopic Urinalysis Comment CULT NOT INDICATED Vitamin B12 Level 546 PG/ML Thyroid Stimulating Hormone 2.040 uIU/ML 3rd Gen Random Cortisol 14.6 MCG/DL Physical Examination HEENT: Normocephalic; atraumatic; no jaundice. Throat is clear. NECK: Neck is supple, no JVD, no lymphadenopathy. CHEST: Irregular CARDIAC: RRR ABDOMEN: Soft, nondistended, nontender; no hepatosplenomegaly; bowel sounds are present in all four quadrants. EXTREMITIES: No clubbing, cyanosis, or edema. SKIN: Normal; no rash; no jaundice. HEALTH POLICY ANALYST: Alert and oriented times three. Generalized weakness (Kirstie Mcdonnell MECHANICAL SHOVEL OPERATOR) Assessment and Plan Plan ASSESSMENT: - N/V, seems to be more related to movement/dizziness. No other GI symptoms. He states that he does not have this at rest and only has when he is moving or when he has the dizziness/weakness. No ear pain or congestion. C/O head "feeling heavy." Abdomen/Pelvis CT ()----> 1. 4.7 cm abdominal aortic aneurysm without rupture. 2. Nonspecific 1 cm hyperdensity identified in the liver. Statistically it likely represents a cyst or hemangioma but again it is nonspecific on this solitary CT examination. 3. Status post cholecystectomy. 4. Subacute fracturing at the anterior inferior pubic rami on the right. This could be an insufficiency fracture if the patient does not have a corresponding history of trauma. 5. 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 6. Colonic diverticula being most numerous in the sigmoid region. There is some hypertrophy in the sigmoid region. CT scan of the head ordered. - Generalized weakness, dizziness, "heavy feeling in head." He reports that he has recently had some right eye pain- hx of multiple surgeries in his right eye and is currently blind, but denies any ear issues. He states that his ears itch, but no ear pain or congestion. He complains of his head feeling "heavy." CT scan ordered. - Subacute fracturing at the anterior inferior pubic rami on the right. States he fell about 3 months ago and his right groin was sore for some time. - Hyperlipidemia, Atrial fibrillation per primary - Hx Prostate cancer, dx one year ago. He was started on Lupron injections, but was only able to complete 4 months of therapy secondary to generalized weakness. He states that he really thought that his weakness would improve after he stopped the Lupron, but that he has continued to have this and just not feeling well. His PSA has increased but he has continued to refuse Lupron injections. PLAN: - Clear liquids - Await CT scan of the head - Zofran prn - ? Consider Meclizine - Supportive care - Further recommendations to follow based on results of CT scan - Pt seen and examined by Dr. Alvarez and myself and this note is written on his behalf (Kirstie Mcdonnell) Physician Comments Seen and examined with Ms. Sathya CABRERA, neurological boucher in progress. EGD tomorrow if symptoms persist. Will follow, thank you (Prela Alvarez MD) Kirstie Mcdonnell Jul 07, 2016 10:57 Perla Alvarez MD Jul 07, 2016 11:59
[2016-07-07 11:30] VITALS: BP 133/73; PULSE 92; RESP 18; TEMP 97.8; O2SAT 94
--- NOTE | 2016-07-07 12:22 | RADRPT ---
EXAM DATE/TIME: 07/07/2016 12:06 [facility] COMPARISON: No previous studies available for comparison. INDICATIONS : Dizziness. RADIATION DOSE: 56.35 CTDIvol (mGy) MEDICAL HISTORY : Carcinoma, prostate. SURGICAL HISTORY : None. ENCOUNTER: Initial ACUITY: 1 day PAIN SCALE: 0/10 LOCATION: cranial TECHNIQUE: Multiple contiguous axial images were obtained of the head. Using automated exposure control and adjustment of the mA and/or kV according to patient size, radiation dose was kept as low as reasonably achievable to obtain optimal diagnostic quality images. FINDINGS: CEREBRUM: There are age-related changes seen within the periventricular white matter and focal ar eas of decreased attenuation identified within the right thalamus. POSTERIOR FOSSA: There is an area of concerning low attenuation involving the medial aspect of th e right cerebellum concerning for acute infarct. The fourth ventricle appears patent.. EXTRACRANIAL: The right orbit demonstrates increased density within the globe consistent with eit her acute hemorrhage or proteinaceous debris. The adjacent osseous structures are intact. SKULL: The calvaria is intact. No evidence of skull fracture. CONCLUSION: Abnormal exam. The low attenuation identified within the medial right cerebellum is c oncerning for possible acute infarct. The areas of low attenuation identified within the right thalam us and bilateral periventricular white matter are age indeterminate. Abnormal increased density ident ified within the right lobe consistent with either proteinaceous debris versus hemorrhage. Recommend MRI for further evaluation. Mechelle Qureshi MD on July 07, 2016 at 12:17 Board Certified Radiologist. This report was verified electronically.
[2016-07-07] MEDS: ASPIRIN EC 81 MG TABEC PO SCH (13:53)
[2016-07-07 16:07] VITALS: BP 123/72; PULSE 93; RESP 18; TEMP 98; O2SAT 94
--- NOTE | 2016-07-07 16:19 | RADRPT ---
EXAM DATE/TIME: 07/07/2016 14:53 [facility] COMPARISON: No previous studies available for comparison. INDICATIONS : Weakness. MEDICAL HISTORY : Hypercholesterolemia. Carcinoma, prostate. Vertigo. Hyperlipidemia. SURGICAL HISTORY : Cholecystectomy. Cataracts. ENCOUNTER: Initial ACUITY: 1 day PAIN SCORE: 0/10 LOCATION: Bilateral neck PEAK SYSTOLIC VELOCITIES (cm/sec): ICA/CCA RATIO: Right: 0.6 Left: 0.9 ICA: Right: 79 Left: 94 CCA: Right: 133 Left: 94 ECA: Right: 71 Left: 80 VERTEBRAL: Right: 36 antegrade Left: 33 antegrade Elevated flow velocities and ICA/CCA ratios have been found to correlate with increased degrees of vessel stenosis, calculated as percentage of diameter relative to a normal segment of distal ICA/CCA FINDINGS: RIGHT CAROTID: No significant stenosis is visualized. The waveforms are within normal limits. LEFT CAROTID: No significant stenosis is visualized. The waveforms are within normal limits. VERTEBRAL ARTERIES: Antegrade flow is seen in both vertebral arteries. MISCELLANEOUS: None. CONCLUSION: No evidence of significant stenosis. Mild atherosclerosis is seen within the carotid bulbs bilaterall y.. Mechelle Qureshi MD on July 07, 2016 at 16:17 Board Certified Radiologist. This report was verified electronically.
--- NOTE | 2016-07-07 16:59 | RADRPT ---
EXAM DATE/TIME: 07/07/2016 16:29 [facility] COMPARISON: No previous studies available for comparison. INDICATIONS : Dizziness. CVA. MEDICAL HISTORY : Carcinoma, prostate. Aneurysm, abdominal. SURGICAL HISTORY : Cholecystectomy. ENCOUNTER: Subsequent ACUITY: 1 day PAIN SCORE: 0/10 LOCATION: head. Please note a normal MRA of the brain does not entirely exclude the possibility of a small aneurysm, nor the possibility of distal intracranial vessel disease. TECHNIQUE: 3D time of flight MRA was performed. Source images, multiplanar STS MIP, and 3D volume MIP reconstru ctions were reviewed. FINDINGS: There is excellent visualization of the major intracranial arteries out to the second-order branch ve ssels. There is no evidence for aneurysm, vessel truncation or stenosis, and no evidence for vascula r malformation. CONCLUSION: Normal examination for a patient of this age. Arnav Du MD on July 07, 2016 at 16:57 Board Certified Radiologist. This report was verified electronically.
[2016-07-07] MEDS: PANTOPRAZOLE SODIUM 40 MG VIAL IV PUSH SCH (17:09)
--- NOTE | 2016-07-07 17:13 | MB ---
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 He does not take an aspirin a day. He has had some mild hematuria intermittently, does see Urology. Yesterday he got up and felt fine, had his orange juice and then about 10 a.m. he was going to eat breakfast and just seemed to be staggering all over the place. No chest pain or headache associated with it. Evidently he vomited, felt lightheaded, generally weak. 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 He does not take any aspirin a day he tells me, although the chart has him down as being on aspirin. ALLERGIES NO KNOWN DRUG ALLERGIES. MEDICATIONS Gemfibrozol. REVIEW OF SYSTEMS He denies any history of hypertension, diabetes, A fib, Coumadin, renal, hepatic or pulmonary disease, thyroid disease, lupus, ulcer, seizure or stroke. SOCIAL HISTORY Not a smoker or a drinker. He lives by himself. FAMILY HISTORY Negative for cancer, seizure or stroke. PHYSICAL EXAMINATION There is no EKG I can see documented in the chart. VITAL SIGNS: Afebrile, 93, 18, 123/72. Initial blood pressure 145/81. He is not on tele currently. There is no carotid bruit. HEART: Regular rhythm. I did not detect a murmur. NEUROLOGICAL: The left pupil was small and round. His visual anthony are full in the left eye. The right eye has a ptosis and he has got a very large irregular pupil from blindness and he is blind in that right eye. Face is symmetrical, normal station. Tongue was midline. There is no drift. He has normal strength in upper and lower extremities bilaterally. Toes downgoing bilaterally. Pinprick, vibratory sense are intact throughout. DTRs are trace throughout. He is not ataxic on [id number] or toe to finger. Speech is full. He is not aphasic. He gives a good history. LABORATORY DATA CBC was normal. Sed rate 5. Basic metabolic profile was B12, thyroid was normal. Cortisol level normal. CRP 0.32. Lactic acid normal. Basic metabolic profile essentially normal glucose 170. LFTs normal. Troponin negative. Coags normal. UA moderate blood, otherwise essentially normal. IMAGING He had a carotid ultrasound that was done, unable to find the results. He had a CT scan of his brain done, possible acute infarct in the cerebellum. Review of the films he does in fact have what appears to be a right medial inferior cerebellar infarct windowing on the image is a bit off. 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 He was not taking aspirin prior. We will check an MRI of the brain, MRA [place] and neck and then an echocardiogram. I think this is likely why he had the vomiting. We will put him tele, check an EKG. I will be following him with you in the hospital. I think since he was not on aspirin, starting him on aspirin now is a good idea. Ted Forrester MD DJM/KK /4:27 PM /4:52 PM
[2016-07-07] MEDS ORDERED: GADODIAMIDE PF 287 MG/ML 20 ML VIAL (for RAD MRI) IV ONE (17:14)
--- NOTE | 2016-07-07 17:28 | RADRPT ---
EXAM DATE/TIME: 07/07/2016 16:29 [facility] COMPARISON: No previous studies available for comparison. INDICATIONS : Stenosis. CONTRAST: 20 cc Omniscan (gadodiamide) IV MEDICAL HISTORY : Aneurysm, abdominal. Carcinoma, prostate. SURGICAL HISTORY : Cholecystectomy. Cataract. ENCOUNTER: Subsequent ACUITY: 1 day PAIN SCORE: 0/10 LOCATION: neck. Percent stenosis is calculated using the diameter of the stenotic region over the diameter of the nor mal distal internal carotid artery. TECHNIQUE: Bolus infused MRA of the extracranial circulation was performed using a neurovascular coil. Post pro cessing was performed including rotationg subvolume maximum intensity projections of each carotid art madiha, rotating full volume maximum intensity projections of both carotid arteries, sagittal and polanco l sliding thin slab reformations of each carotid artery, and left oblique sliding thin slab reformati on through the aortic arch to include the origin of the arch branch vessels. FINDINGS: AORTIC ARCH: There is a three vessel origin of the great vessels from the aorta. No evidence of ostial narrowing. RIGHT CAROTID: The common carotid artery is intact. The carotid bulb has a normal configuration without ulceration or narrowing. The internal carotid artery lumen is smooth without stenosis. The external carotid ar gilles is intact. LEFT CAROTID: The common carotid artery is intact. The carotid bulb has a normal configuration without ulceration or narrowing. The internal carotid artery lumen is smooth without stenosis. The external carotid ar gilles is intact. VERTEBRALS: The vertebral arteries have a symmetric diameter. No stenotic lesions are seen. CONCLUSION: Negative for hemodynamically significant carotid stenosis. Brendon Kothari MD FACR on July 07, 2016 at 17:25 Board Certified Radiologist. This report was verified electronically.
--- NOTE | 2016-07-07 17:44 | RADRPT ---
EXAM DATE/TIME: 07/07/2016 16:29 [facility] COMPARISON: No previous studies available for comparison. INDICATIONS : Dizziness. CVA. CONTRAST: 20 cc Omniscan (gadodiamide) IV MEDICAL HISTORY : Aneurysm, abdominal. Hypertension. SURGICAL HISTORY : Cholecystectomy. Cataracts. ENCOUNTER: Subsequent ACUITY: 1 day PAIN SCORE: 0/10 LOCATION: Head. TECHNIQUE: Multiplanar, multisequence MRI of the brain was performed both prior to and following the administration of paramagnetic contrast. FINDINGS: Restricted diffusion is seen in the medial right cerebellar hemisphere in a PICA distri bution. There is no supratentorial restricted diffusion. There are scattered periventricular white matter changes evident. There are no extra-axial fluid collections appreciated. Midline structures are intact. There is a lacunar infarct in the thalamus right side measuring less than 1 cm. Following intravenous administration of gadolinium there is abnormal contrast enhancement. The right orbit and globe are abnormal. Old hemorrhage in the orbit cannot be excluded. CONCLUSION: 1. MRI is consistent with an acute infarct inferior right cerebellar hemisphere in a PICA distributio n. 2. Periventricular white matter changes. 3. Lacunar infarct thalamus on the left. 4. There is no hemorrhage. Brendon Kothari MD FACR on July 07, 2016 at 17:23 Board Certified Radiologist. This report was verified electronically.
[2016-07-07 18:04] LABS: FREE T4 1.15 NG/DL (0.76-1.46); HDL CHOLESTEROL 41.8 MG/DL (40.0-60.0)
--- NOTE | 2016-07-07 19:00 | EC ---
Study Study Date:07/07/2016 STUDY CONCLUSIONS SUMMARY - Left ventricle: The cavity size was normal. Wall thickness was normal. Systolic function was normal. The estimated ejection fraction was 55%, in the range of 50% to 55%. Wall motion was normal; there were no regional wall motion abnormalities. - Aortic valve: Trileaflet; mildly thickened, mildly calcified leaflets. - Mitral valve: Moderately calcified annulus. Mildly thickened leaflets, . - Atrial septum: A patent foramen ovale cannot be excluded. If LV function is below 40, please consider prescribing an ACEI or ARB or document rationale for non-use. PROCEDURE DATA STUDY STATUS: Elective. Procedure: Transthoracic echocardiography. Image quality was good. Scanning was performed from the parasternal, apical, and subcostal acoustic windows. Study completion: The patient tolerated the procedure well. Transthoracic echocardiography. M-mode, complete 2D, complete spectral Doppler, and color Doppler. Patient status: Inpatient. CARDIAC ANATOMY LEFT VENTRICLE: The cavity size was normal. Wall thickness was normal. Systolic function was normal. The estimated ejection fraction was 55%, in the range of 50% to 55%. Wall motion was normal; there were no regional wall motion abnormalities. AORTIC VALVE: Trileaflet; mildly thickened, mildly calcified leaflets. Doppler: Transvalvular velocity was within the normal range. There was no stenosis. No regurgitation. AORTA: Aortic root: The aortic root was normal in size. MITRAL VALVE: Moderately calcified annulus. Mildly thickened leaflets, . Doppler: Transvalvular velocity was within the normal range. There was no evidence for stenosis. Trace regurgitation. Mean gradient: 2mm Hg (D). Peak gradient: 4mm Hg (D). LEFT ATRIUM: The atrium was at the upper limits of normal in size. ATRIAL SEPTUM: A patent foramen ovale cannot be excluded. RIGHT VENTRICLE: The cavity size was normal. Wall thickness was normal. PULMONIC VALVE: Doppler: Transvalvular velocity was within the normal range. There was no evidence for stenosis. No regurgitation. TRICUSPID VALVE: Structurally normal valve. Doppler: Transvalvular velocity was within the normal range. No regurgitation. PULMONARY ARTERY: The main pulmonary artery was normal-sized. Systolic pressure was within the normal range. RIGHT ATRIUM: The atrium was normal in size. PERICARDIUM: There was no pericardial effusion. SYSTEMIC VEINS: Inferior vena cava: The vessel was normal in size. BASIC MEASUREMENTS ADULT Normal Left ventricle LV internal dimension, ED, chordal level, *41.2 mm 43-52 PLAX LV posterior wall thickness, ED 7.63 mm IVS/LVPW ratio, ED 1.26 <1.3 Ventricular septum Septal thickness, ED 9.58 mm Left atrium Anterior-posterior dimension 38 mm Right ventricle RV internal dimension, ED, PLAX 21 mm 19-38 DOPPLER MEASUREMENTS ADULT Normal Main pulmonary artery Pressure, S 25 mm Hg =30 Aortic valve VTI, S 22.7 cm Mitral valve Mean velocity, D 59.2 cm/s Mean gradient, D 2 mm Hg Peak gradient, D 4 mm Hg Maximal regurgitant velocity 298 cm/s Tricuspid valve Regurgitant peak velocity 192 cm/s Peak RV-RA gradient, S 15 mm Hg Maximal regurgitant velocity 192 cm/s Systemic veins Estimated CVP 10 mm Hg Right ventricle RV pressure, S 25 mm Hg <30 LEGEND: Mean values are shown as u=mean value. Asterisk (*) meng values outside specified normal range. Prepared and signed by Pieter Madrid [id number]
[2016-07-07 20:15] VITALS: PULSE 78
--- NOTE | 2016-07-07 20:46 | EKG ---
Date Performed: 07/06/2016 Time Performed: 12:25:16 PTAGE: 81 years EKG: ECTOPIC ATRIAL RHYTHM INCOMPLETE RIGHT BUNDLE BRANCH BLOCK MINIMAL ST DEPRESSION ABNORMAL R HYTHM ECG NO PREVIOUS TRACING DOCTOR: Amirah Mayorga Interpretating Date/Time 07/07/2016 20:45:48
[2016-07-07 21:02] VITALS: BP 120/58; PULSE 97; RESP 20; TEMP 98.3; O2SAT 95
[2016-07-07] MEDS ORDERED: TEMAZEPAM 7.5 MG CAP PO SCH (23:15)
[2016-07-08] VITALS (9 sets, daily range): BP systolic 95–131; BP diastolic 53–73; PULSE 72–106; RESP 16–20; TEMP 97.4–98.3; O2SAT 92–95
[2016-07-08] MEDS ORDERED: TEMAZEPAM 7.5 MG CAP PO SCH ×2 (00:30→00:45)
[2016-07-08] MEDS: SODIUM CHLOR 0.9% 1000 ML INJ 1,000 ML IV SCH ×2 (06:51→20:47)
[2016-07-08 06:55] LABS: HDL CHOLESTEROL 36.7 MG/DL (40.0-60.0)
--- NOTE | 2016-07-08 08:42 | HHI.PR ---
Subjective Remarks sr Objective Vital Signs Date Time Temp Pulse Resp B/P Pulse Ox O2 Delivery O2 Flow Rate FiO2 07/08/16 08:12 98.1 95 18 105/57 92 07/08/16 04:10 97.4 90 16 113/66 93 07/08/16 00:45 97.7 72 16 119/73 95 07/07/16 21:02 98.3 97 20 120/58 95 07/07/16 20:15 78 07/07/16 16:07 98.0 93 18 123/72 94 07/07/16 11:30 97.8 92 18 133/73 94 I/O 07/07/16 07/07/16 07/07/16 07/08/16 07/08/16 07/08/16 07:00 15:00 23:00 07:00 15:00 23:00 Intake Total 1792 ml Output Total 200 ml 350 ml Balance 1792 ml -200 ml -350 ml Intake IV Total 1792 ml Output Urine Total 200 ml 350 ml Result Diagram: 07/07/16 0351 07/06/16 1221 Other Results mri r cbllr pica cva no blood mra necka dn cow and echo neg ldl 105 Objective Remarks vff os face sym 5/5 not ataxic limbs Assessment and Plan Assessment and Plan imp r pica infarct asa and statin for now fu holter oob will og need rehab ? nithin due to imbalance med team plz start statin possible could go tomorrow? will see how he does he will need prolonged holter/loop o/p if holter neg here for casey occult afTed Valente MD Jul 08, 2016 08:42
[2016-07-08] MEDS: ASPIRIN EC 81 MG TABEC PO SCH (09:48)
--- NOTE | 2016-07-08 09:58 | HHI.PR ---
Subjective History of Present Illness feels little better No more N/V was able to eat this am still No balance no headache No new loss of vision or diplopia ch blindness R eye no CP or SOB Offers no other c/o Vitals/Results Intake & Output 07/07/16 07/07/16 07/08/16 15:00 23:00 07:00 Intake Total 1792 ml Output Total 200 ml 350 ml Balance 1792 ml -200 ml -350 ml Intake IV Total 1792 ml Output Urine Total 200 ml 350 ml Vital Signs Vital Signs Date Time Temp Pulse Resp B/P Pulse Ox O2 Delivery O2 Flow Rate FiO2 07/08/16 08:12 98.1 95 18 105/57 92 07/08/16 04:10 97.4 90 16 113/66 93 07/08/16 00:45 97.7 72 16 119/73 95 07/07/16 21:02 98.3 97 20 120/58 95 07/07/16 20:15 78 07/07/16 16:07 98.0 93 18 123/72 94 07/07/16 11:30 97.8 92 18 133/73 94 CBC/BMP: 07/07/16 0351 07/06/16 1221 Lab Results Laboratory Tests Test 07/07/16 07/08/16 11:22 06:08 Erythrocyte Sedimentation Rate 5 mm/hr C-Reactive Protein 0.32 MG/DL Triglycerides Level 105 MG/DL 120 MG/DL Cholesterol Level 179 MG/DL 166 MG/DL LDL Cholesterol 116 MG/DL 105 MG/DL HDL Cholesterol 41.8 MG/DL 36.7 MG/DL Cholesterol/HDL Ratio 4.28 RATIO 4.52 RATIO Free Thyroxine 1.15 NG/DL Free Prostate Specific Antigen 0.5 ng/mL Prostate Specific Antigen 3.3 ng/mL Total Prostate Specific Antign . ratio Free/Total Physical Exam General General Appearance: No Acute Distress, Comfortable Eyes Eye Exam: Sclera White, Extraocular Movement Intact Ears & Nose Ears & Nose Exam: Nasal Mucosa [place] Throat Throat Exam: Oral Mucosa [place] & Moist Neck Neck Exam: Neck Supple, Trachea Midline Pulmonary Resp Exam: Clear Bilaterally, Breath Sounds Equal Cardiology CV Exam: Regular, Normal Sinus Rhythm Gastrointestinal/Abdomen GI Exam: Soft, Non-Tender, Bowel Sounds Present Integumentary Skin Exam: Warm, Dry, Intact Extremeties Extremities Exam: No Edema, Pedal Pulses Palpable Neurologic Neuro Exam: Alert, Awake, Oriented, Speech Clear, Moving All Extremities Psychiatric Psych Exam: Appropriate Responses Assessment/Plan Assessment/Plan Diagnosis: (1) Weakness (2) Nausea & vomiting (3) Dizziness (4) Prostate cancer (5) Abdominal aneurysm (6) Blind right eye (7) Hx of atrial fibrillation,s/p ablation in SR (8) CAD s/p CABG Assessment and Plan 81 year old male with hx of prostate cancer, was receiving Lupron injections x 4 months which he stopped due to severe weakness. He has declined further treatment including surgery, radiation and chemo. Presented to ED with worsening weakness, developed N&V x 2 days, dizziness, CT head +ve cerebellar Infarct MRI brain +ve R PICA CVA Left Thalamic lacunar infarct MRA neck No hemodynamically sig stenosis Echo , noted Lipid panel ASA appreciate Neurology input pt remained in SR Neuro rec Holter monitoring start statin PT/OT eval -monitor electrolytes --Antiemetics PRN - Prostate cancer, no longer having treatments -monitor for now. CAD s/p CABG consider starting BB cont ASA cont Statin AA, 4.7 cm, stable -monitor BP/control BP CT findings of subacute fracturing at the anterior inferior pubic rami on the right, no recent falls or injuries -PT eval Hx afib, stable, SR -monitor Possible depression, secondary to declining health -monitor for now -denies SI CM for discharge planning for [facility] SCDs for DVT prophylaxis Paul Schaffer MD Jul 08, 2016 09:58
--- NOTE | 2016-07-08 10:41 | HHI.GIFU ---
Subjective Remarks Working with PT- states he is feeling much stronger today and better today. No further nausea/vomiting. Tolerating diet. No abdominal pain. (Kirstie Mcdonnell) Objective Vitals I&O Vital Signs Date Time Temp Pulse Resp B/P Pulse Ox O2 Delivery O2 Flow Rate FiO2 07/08/16 08:12 98.1 95 18 105/57 92 07/08/16 04:10 97.4 90 16 113/66 93 07/08/16 00:45 97.7 72 16 119/73 95 07/07/16 21:02 98.3 97 20 120/58 95 07/07/16 20:15 78 07/07/16 16:07 98.0 93 18 123/72 94 07/07/16 11:30 97.8 92 18 133/73 94 I/O 07/07/16 07/07/16 07/07/16 07/08/16 07/08/16 07/08/16 07:00 15:00 23:00 07:00 15:00 23:00 Intake Total 1792 ml Output Total 200 ml 350 ml Balance 1792 ml -200 ml -350 ml Intake IV Total 1792 ml Output Urine Total 200 ml 350 ml Laboratory Laboratory Tests Test 07/07/16 07/08/16 11:22 06:08 Erythrocyte Sedimentation Rate 5 C-Reactive Protein 0.32 Triglycerides Level 105 120 Cholesterol Level 179 166 LDL Cholesterol 116 105 HDL Cholesterol 41.8 36.7 Cholesterol/HDL Ratio 4.28 4.52 Free Thyroxine 1.15 Free Prostate Specific Antigen 0.5 Prostate Specific Antigen 3.3 Total Prostate Specific Antign . Free/Total Imaging Last Impressions Neck Magnetic Resonance Angiography 07/07/16 1628 Signed Impressions: Service Date/Time: Thursday, July 07, 2016 16:29 - CONCLUSION: Negative for hemodynamically significant carotid stenosis. Brendon Kothari MD FACR Head Magnetic Resonance Angiography 07/07/16 0000 Signed Impressions: Service Date/Time: Thursday, July 07, 2016 16:29 - CONCLUSION: Normal examination for a patient of this age. Arnav Du MD Head CT 07/07/16 0000 Signed Impressions: Service Date/Time: Thursday, July 07, 2016 12:06 - CONCLUSION: Abnormal exam. The low attenuation identified within the medial right cerebellum is concerning for possible acute infarct. The areas of low attenuation identified within the right thalamus and bilateral periventricular white matter are age indeterminate. Abnormal increased density identified within the right lobe consistent with either proteinaceous debris versus hemorrhage. Recommend MRI for further evaluation. Mechelle Qureshi MD Carotid Artery Ultrasound 07/07/16 0000 Signed Impressions: Service Date/Time: Thursday, July 07, 2016 14:53 - CONCLUSION: No evidence of significant stenosis. Mild atherosclerosis is seen within the carotid bulbs bilaterally.. Mechelle Qureshi MD Abdomen/Pelvis CT 07/06/16 1207 Signed Impressions: Service Date/Time: Wednesday, July 06, 2016 14:00 - CONCLUSION: 1. 4.7 cm abdominal aortic aneurysm without rupture. 2. Nonspecific 1 cm hyperdensity identified in the liver. Statistically it likely represents a cyst or hemangioma but again it is nonspecific on this solitary CT examination. 3. Status post cholecystectomy. 4. Subacute fracturing at the anterior inferior pubic rami on the right. This could be an insufficiency fracture if the patient does not have a corresponding history of trauma. 5. 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 6. Colonic diverticula being most numerous in the sigmoid region. There is some hypertrophy in the sigmoid region. Cj Lo MD Chest X-Ray 07/06/16 0000 Signed Impressions: Service Date/Time: Wednesday, July 06, 2016 13:23 - CONCLUSION: No acute disease. Status post CABG Jared Wilcox MD Physical Exam HEENT: Normocephalic; atraumatic; no jaundice. Throat is clear. NECK: Neck is supple, no JVD, no lymphadenopathy. CHEST: CTA CARDIAC: RRR ABDOMEN: Soft, nondistended, nontender; no hepatosplenomegaly; bowel sounds are present in all four quadrants. EXTREMITIES: No clubbing, cyanosis, or edema. SKIN: Normal; no rash; no jaundice. PROCEDURE MANAGER: No focal deficits; alert and oriented times three. (Kirstie Mcdonnell) Assessment and Plan Plan ASSESSMENT: - N/V, seems to be more related to movement/dizziness. No other GI symptoms. Abdomen/Pelvis CT (07/06/16)----> 1. 4.7 cm abdominal aortic aneurysm without rupture. 2. Nonspecific 1 cm hyperdensity identified in the liver. Statistically it likely represents a cyst or hemangioma but again it is nonspecific on this solitary CT examination. 3. Status post cholecystectomy. 4. Subacute fracturing at the anterior inferior pubic rami on the right. This could be an insufficiency fracture if the patient does not have a corresponding history of trauma. 5. 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 6. Colonic diverticula being most numerous in the sigmoid region. There is some hypertrophy in the sigmoid region. CT head as above. N/V RESOLVED. Tolerating diet. - Generalized weakness. Improved. - Acute infarct inferior right cerebellar hemisphere in a PICA distribution, lacunar infarct thalamus on the left. Neck MRA (07/07/16)----> Negative for hemodynamically significant carotid stenosis. Head MRA (07/07/16)-----> Normal examination for a patient of this age. Neurology following. - Subacute fracturing at the anterior inferior pubic rami on the right. States he fell about 3 months ago and his right groin was sore for some time. - Hyperlipidemia, Atrial fibrillation per primary. RRR at this time. - Hx Prostate cancer, dx one year ago. He was started on Lupron injections, but was only able to complete 4 months of therapy secondary to generalized weakness. He states that he really thought that his weakness would improve after he stopped the Lupron, but that he has continued to have this and just not feeling well. His PSA has increased but he has continued to refuse Lupron injections. PLAN: - N/V RESOLVED - MERA - Zofran prn - GI will sign off, please reconsult as needed - Pt seen and examined by Dr. Alvarez and myself and this note is written on his behalf (Kirstie Mcdonnell) Physician Comments Seen and examined with Ms. Sathya CABRERA, ct shows cerebellar CVA, EGD cancelled. Symptoms secondary to CVA. Will sign off, Thank you (Perla Alvarez MD) Kirstie Mcdonnell Jul 08, 2016 10:41 Perla Alvarez MD Jul 08, 2016 16:35
[2016-07-08] MEDS: FAMOTIDINE 20 MG TAB PO SCH (20:47)
[2016-07-08] MEDS: PRAVASTATIN SOD 10 MG TAB PO SCH (20:50)
--- NOTE | 2016-07-08 21:12 | EKG ---
Date Performed: 07/07/2016 Time Performed: 17:12:52 PTAGE: 81 years EKG: ECTOPIC ATRIAL RHYTHM INCOMPLETE RIGHT BUNDLE BRANCH BLOCK ST DEVIATION AND MODERATE T-WAVE ABNORMALITY, CONSIDER ANTERIOR ISCHEMIA ABNORMAL ECG PREVIOUS TRACING : 07/06/2016 12.25 DOCTOR: Ankit Vela Interpretating Date/Time 07/08/2016 21:05:52
[2016-07-08] MEDS: TEMAZEPAM 15 MG CAP PO PRN (23:32)
[2016-07-09] VITALS (8 sets, daily range): BP systolic 113–128; BP diastolic 65–84; PULSE 86–97; RESP 18–20; TEMP 97.3–99.4; O2SAT 95–96
[2016-07-09] MEDS: ASPIRIN EC 325 MG TABEC PO SCH (08:17)
[2016-07-09] MEDS: SODIUM CHLOR 0.9% 1000 ML INJ 1,000 ML IV SCH ×2 (08:18→22:34)
--- NOTE | 2016-07-09 09:22 | HHI.PR ---
Subjective Remarks sr Objective Vital Signs Date Time Temp Pulse Resp B/P Pulse Ox O2 Delivery O2 Flow Rate FiO2 07/09/16 04:08 98.0 95 19 120/65 96 07/09/16 01:22 98.2 97 20 125/70 96 07/08/16 19:46 98.3 106 20 131/72 94 07/08/16 19:07 96 07/08/16 16:26 98.1 94 18 95/53 94 07/08/16 16:00 95 07/08/16 12:22 98.0 94 18 127/73 94 I/O 07/08/16 07/08/16 07/08/16 07/09/16 07/09/16 07/09/16 07:00 15:00 23:00 07:00 15:00 23:00 Intake Total 700 ml Output Total 350 ml Balance -350 ml 700 ml Intake IV Total 700 ml Output Urine Total 350 ml # Voids 4 Result Diagram: 07/07/16 0351 07/06/16 1221 Objective Remarks vff os face sym 5/5 not ataxic limbs nad looks great Assessment and Plan Assessment and Plan imp r pica infarct asa and statin for now fu holter pend oob will need rehab ? weller due to imbalance med team plz start statin can dc today to rehab he will need prolonged holter/loop o/p if holter neg here for any occult afib i will fu up o/p for this Ted Fairchild MD Jul 09, 2016 09:22
--- NOTE | 2016-07-09 09:55 | HHI.PR ---
Subjective History of Present Illness feels better No more N/V EATING WELL balance is little better /ambulated short distance w PT today no headache No new loss of vision or diplopia ch blindness R eye no CP or SOB Offers no other c/o Vitals/Results Intake & Output 07/08/16 07/08/16 07/09/16 15:00 23:00 07:00 Intake Total 700 ml Balance 700 ml Intake IV Total 700 ml # Voids 4 Vital Signs Vital Signs Date Time Temp Pulse Resp B/P Pulse Ox O2 Delivery O2 Flow Rate FiO2 07/09/16 04:08 98.0 95 19 120/65 96 07/09/16 01:22 98.2 97 20 125/70 96 07/08/16 19:46 98.3 106 20 131/72 94 07/08/16 19:07 96 07/08/16 16:26 98.1 94 18 95/53 94 07/08/16 16:00 95 07/08/16 12:22 98.0 94 18 127/73 94 CBC/BMP: 07/07/16 0351 07/06/16 1221 Physical Exam General General Appearance: No Acute Distress, Comfortable Eyes Eye Exam: Sclera White, Extraocular Movement Intact Ears & Nose Ears & Nose Exam: Nasal Mucosa [place] Throat Throat Exam: Oral Mucosa [place] & Moist Neck Neck Exam: Neck Supple, Trachea Midline Pulmonary Resp Exam: Clear Bilaterally, Breath Sounds Equal Cardiology CV Exam: Regular, Normal Sinus Rhythm Gastrointestinal/Abdomen GI Exam: Soft, Non-Tender, Bowel Sounds Present Integumentary Skin Exam: Warm, Dry, Intact Extremeties Extremities Exam: No Edema, Pedal Pulses Palpable Neurologic Neuro Exam: Alert, Awake, Oriented, Speech Clear, Moving All Extremities Psychiatric Psych Exam: Appropriate Responses Assessment/Plan Assessment/Plan Diagnosis: (1) Acute Right PICA CVA (2) Nausea & vomiting d/t above (3) Dizziness d/t above (4) Prostate cancer (5) Abdominal aneurysm 4.7 cm (6) Blind right eye (7) Hx of atrial fibrillation,s/p ablation in SR (8) CAD s/p CABG Assessment and Plan 81 year old male with hx of prostate cancer, was receiving Lupron injections x 4 months which he stopped due to severe weakness. He has declined further treatment including surgery, radiation and chemo. Presented to ED with worsening weakness, developed N&V x 2 days, dizziness, CT head +ve cerebellar Infarct MRI brain +ve R PICA CVA Left Thalamic lacunar infarct MRA neck No hemodynamically sig stenosis Echo , noted Lipid panel ASA appreciate Neurology input pt remained in SR Neuro rec Holter monitoring statin PT/OT eval -monitor electrolytes --Antiemetics PRN - Prostate cancer, no longer having treatments -monitor for now. CAD s/p CABG consider starting BB cont ASA cont Statin start low dose BB AA, 4.7 cm, stable -control BP -periodic f/u imaging in [address] findings of subacute fracturing at the anterior inferior pubic rami on the right, no recent falls or injuries -PT eval Hx afib, stable, SR -monitor SCDs for DVT prophylaxis ss for d/c planning, d/c to [place] or SNF when arrangements are made d/w Paul Mustafa MD Jul 09, 2016 09:55
[2016-07-09] MEDS ORDERED: PRAV10TA PO (09:57)
[2016-07-09] MEDS ORDERED: Aspirin Ec PO (09:57)
[2016-07-09] MEDS: FAMOTIDINE 20 MG TAB PO SCH (22:34)
[2016-07-09] MEDS: TEMAZEPAM 15 MG CAP PO PRN (22:34)
[2016-07-09] MEDS: PRAVASTATIN SOD 10 MG TAB PO SCH (22:34)
[2016-07-09] MEDS: CARVEDILOL 3.125 MG TAB PO SCH (22:35)
[2016-07-10] VITALS (9 sets, daily range): BP systolic 115–131; BP diastolic 55–94; PULSE 68–106; RESP 20–22; TEMP 96.5–98.7; O2SAT 94–97
[2016-07-10] MEDS: CARVEDILOL 3.125 MG TAB PO SCH ×2 (09:35→20:49)
[2016-07-10] MEDS: ASPIRIN EC 325 MG TABEC PO SCH (09:37)
[2016-07-10] MEDS ORDERED: SULF10SO3 RIGHT EYE (09:41)
--- NOTE | 2016-07-10 10:56 | HHI.PR ---
Subjective Remarks Rt. eye pain/discomfort No chest pain No SOB, No headache No nausea /vomiting Objective Objective Results - Vital Signs Date Time Temp Pulse Resp B/P Pulse Ox O2 Delivery O2 Flow Rate FiO2 07/10/16 03:32 97.6 80 20 131/81 96 07/10/16 00:14 97.6 83 20 126/78 94 07/09/16 20:00 94 07/09/16 19:47 98.3 95 20 125/69 95 07/09/16 17:39 98.5 90 18 125/76 96 07/09/16 16:00 90 07/09/16 13:19 99.4 91 18 128/84 96 I/O 07/09/16 07/09/16 07/09/16 07/10/16 07/10/16 07/10/16 07:00 15:00 23:00 07:00 15:00 23:00 Intake Total 1000 ml 945 ml Output Total 500 ml 800 ml Balance 1000 ml -500 ml 145 ml Intake Oral 120 ml IV Total 1000 ml 825 ml Output Urine Total 500 ml 800 ml # Voids 5 2 Result Diagram: 07/07/16 0351 07/06/16 1221 Medications and IVs Active Medications Carvedilol (Coreg) 3.125 mg Q12HR PO Last administered on 07/10/16t 09:35; Admin Dose 3.125 MG; Start 07/09/16 at 21:00 Sulfacetamide Sodium (Bleph-10 Opth Soln) 1 drop Q8H RIGHT EYE; Start 07/10/16 at 11:00 ROS General: Other (10 point ROS done. Positive noted with rt. eye. See note. Otherwise negative exam.) HEENT: Other (rt. eye with mild edema and erythema. Tearing noted. Blind rt. eye) Physical Exam Physical Exam PHYSICAL EXAMINATIONPhysical Exam General General Appearance: Mild distress with eye pain. Resting in the bed Eyes Eye Exam: Sclera White left eye; rt. eye reddened, mild edema tearing noted, Extraocular Movement Intact Pupil nonreactive rt. eye due to blindness. Ears & Nose Ears & Nose Exam: Nasal Mucosa [place] Throat Throat Exam: Oral Mucosa [place] & Moist Neck Neck Exam: Neck Supple, Trachea Midline Pulmonary Resp Exam: Clear Bilaterally, Breath Sounds Equal Cardiology CV Exam: Regular, Normal Sinus Rhythm Gastrointestinal/Abdomen GI Exam: Soft, Non-Tender, Bowel Sounds Present Integumentary Skin Exam: Warm, Dry, Intact, thin turgor Extremeties Extremities Exam: No Edema, Pedal Pulses Palpable Neurologic Neuro Exam: Alert, Awake, Oriented, Speech Clear, Moving All Extremities Psychiatric Psych Exam: Affect and mood Appropriate Responses Objective Remarks I hope I get to go to rehabilitation today. A/P Assessment and Plan Assessment/Plan Diagnosis: (1) Acute Right PICA CVA (2) Nausea & vomiting d/t above (3) Dizziness d/t above (4) Prostate cancer (5) Abdominal aneurysm 4.7 cm (6) Blind right eye (7) Hx of atrial fibrillation,s/p ablation in SR (8) CAD s/p CABG Assessment and Plan 81 year old male with hx of prostate cancer, was receiving Lupron injections x 4 months which he stopped due to severe weakness. He has declined further treatment including surgery, radiation and chemo. Presented to ED with worsening weakness, developed N&V x 2 days, dizziness, CT head +ve cerebellar Infarct MRI brain +ve R PICA CVA Left Thalamic lacunar infarct MRA neck No hemodynamically sig stenosis Echo , noted Lipid panel done ASA daily appreciate Neurology input pt remained in SR Neuro rec Holter monitoring on today statin PT eval this am Eye drops ordered today. -monitor electrolytes --Antiemetics PRN - Prostate cancer, no longer having treatments -monitor for now. CAD s/p CABG consider starting BB cont ASA cont Statin start low dose BB AA, 4.7 cm, stable -control BP -periodic f/u imaging in [address] findings of subacute fracturing at the anterior inferior pubic rami on the right, no recent falls or injuries -PT eval Hx afib, stable, SR -monitor holter on SCDs for DVT prophylaxis ss for d/c planning, d/c to SNF when arrangements are made. Patient wanting to go to [facility]. Working with sample case porter Damaris Burdick for hopeful acceptance. It is the weekend, discharge planning may continue till Tuesday. Damaris is calling to start the process. He is walking 60 feet, PT does recommend he be excepted. Lives alone and needs to be strengthened for his safety and ADLs. d/w Paul Mustafa MD Jul 09, 2016 09:55 Discharge Planning SNF if possible. Discussed With: Nurse, Other (D/W patient, D/W Dr. Schaffer, D/W PAOLA) Gina Colon Jul 10, 2016 10:56 cont ASA cont Statin start low dose BB AA, 4.7 cm, stable -control BP -periodic f/u imaging in [address] findings of subacute fracturing at the anterior inferior pubic rami on the right, no recent falls or injuries -PT eval Hx afib, stable, SR -monitor holter on SCDs for DVT prophylaxis ss for d/c planning, d/c to SNF when arrangements are made. Patient wanting to go to [facility]. Working with sample case porter Damaris Burdick for hopeful acceptance. It is the weekend, discharge planning may continue till Tuesday. Damaris is calling to start the process. He is walking 60 feet, PT does recommend he be excepted. Lives alone and needs to be strengthened for his safety and ADLs. d/w Paul Mustafa MD Jul 09, 2016 09:55 Discharge Planning SNF if possible. Discussed With: Nurse, Other (D/W patient, D/W Dr. Schaffer, D/W PAOLA) Gina Colon Jul 10, 2016 10:56
[2016-07-10] MEDS: SULFACETAMIDE SODIUM 10% OPTH SOLN 15 ML BTL RIGHT EYE SCH ×2 (11:00→18:15)
[2016-07-10] MEDS: SODIUM CHLOR 0.9% 1000 ML INJ 1,000 ML IV SCH ×2 (11:08→23:27)
--- NOTE | 2016-07-10 17:40 | HHI.DS ---
Discharge Summary Admission Date Jul 07, 2016 at 13:01 Discharge Date: Jul 10, 2016 Admitting Diagnosis vomiting (1) CVA (cerebral vascular accident) Diagnosis: Principal (2) Weakness Diagnosis: Secondary (3) Nausea & vomiting Diagnosis: Secondary (4) Dyspnea Diagnosis: Secondary (5) Abdominal aneurysm Diagnosis: Secondary (6) Blind right eye Diagnosis: Secondary (7) Hx of atrial fibrillation, no current medication Diagnosis: Secondary Brief History This was a pleasant 80-year-old male with hx of [place] 8 prostate cancer in the spring, metastatic work up negative. Patient was started on androgen deprivation therapy with Lupron injections and was only able to complete 4 months of therapy but he stopped as he developed generalized weakness. His PSA has increased but he has continued to refuse Lupron injections. He follows up with Dr. Christianson and Dr. Mi. Most recently, he went to see Dr. Mi and he discussed possible surgery or radiation versus watchful waiting. Pt. opted to just monitor as he is very weak and fatigue. He doesn't want to continue following up with Dr. Mi. Dr. Mi checked B12 and gave him a short trial of B12 with minimal response. Last Impressions Abdomen/Pelvis CT 07/06/16 1207 Signed Impressions: Service Date/Time: Wednesday, July 06, 2016 14:00 - CONCLUSION: 1. 4.7 cm abdominal aortic aneurysm without rupture. 2. Nonspecific 1 cm hyperdensity identified in the liver. Statistically it likely represents a cyst or hemangioma but again it is nonspecific on this solitary CT examination. 3. Status post cholecystectomy. 4. Subacute fracturing at the anterior inferior pubic rami on the right. This could be an insufficiency fracture if the patient does not have a corresponding history of trauma. 5. 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 6. Colonic diverticula being most numerous in the sigmoid region. There is some hypertrophy in the sigmoid region. Cj Lo MD Chest X-Ray 07/06/16 0000 Signed Impressions: Service Date/Time: Wednesday, July 06, 2016 13:23 - CONCLUSION: No acute disease. Status post CABG Jared Wilcox MD Review of previous medical records noted a CT of abdomen as OP in August and showed AA, 4.5 cm. As noted above, subacute fracture of right anterior pubic rami noted, pt denies any recent injury, no falls. Pt. was given IVF, antiemetics. He is feeling improved, no longer having nausea. Pt. admitted for further evaluation and treatment. CBC/BMP: 07/07/16 0351 07/06/16 1221 Significant Findings Laboratory Tests Test 07/08/16 06:08 LDL Cholesterol 105 MG/DL (0-99) HDL Cholesterol 36.7 MG/DL (40.0-60.0) Imaging Last Impressions Neck Magnetic Resonance Angiography 07/07/16 1628 Signed Impressions: Service Date/Time: Thursday, July 07, 2016 16:29 - CONCLUSION: Negative for hemodynamically significant carotid stenosis. Brendon Kothari MD FACR Brain MRI 07/07/16 1628 Signed Impressions: Service Date/Time: Thursday, July 07, 2016 16:29 - CONCLUSION: 1. MRI is consistent with an acute infarct inferior right cerebellar hemisphere in a PICA distribution. 2. Periventricular white matter changes. 3. Lacunar infarct thalamus on the left. 4. There is no hemorrhage. Brendon Kothari MD FACR Head Magnetic Resonance Angiography 07/07/16 0000 Signed Impressions: Service Date/Time: Thursday, July 07, 2016 16:29 - CONCLUSION: Normal examination for a patient of this age. Arnav Du MD Head CT 07/07/16 0000 Signed Impressions: Service Date/Time: Thursday, July 07, 2016 12:06 - CONCLUSION: Abnormal exam. The low attenuation identified within the medial right cerebellum is concerning for possible acute infarct. The areas of low attenuation identified within the right thalamus and bilateral periventricular white matter are age indeterminate. Abnormal increased density identified within the right lobe consistent with either proteinaceous debris versus hemorrhage. Recommend MRI for further evaluation. Mechelle Qureshi MD Carotid Artery Ultrasound 07/07/16 0000 Signed Impressions: Service Date/Time: Thursday, July 07, 2016 14:53 - CONCLUSION: No evidence of significant stenosis. Mild atherosclerosis is seen within the carotid bulbs bilaterally.. Mechelle Qureshi MD Abdomen/Pelvis CT 07/06/16 1207 Signed Impressions: Service Date/Time: Wednesday, July 06, 2016 14:00 - CONCLUSION: 1. 4.7 cm abdominal aortic aneurysm without rupture. 2. Nonspecific 1 cm hyperdensity identified in the liver. Statistically it likely represents a cyst or hemangioma but again it is nonspecific on this solitary CT examination. 3. Status post cholecystectomy. 4. Subacute fracturing at the anterior inferior pubic rami on the right. This could be an insufficiency fracture if the patient does not have a corresponding history of trauma. 5. 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 6. Colonic diverticula being most numerous in the sigmoid region. There is some hypertrophy in the sigmoid region. Cj Lo MD Chest X-Ray 07/06/16 0000 Signed Impressions: Service Date/Time: Wednesday, July 06, 2016 13:23 - CONCLUSION: No acute disease. Status post CABG Jared Wilcox MD PE at Discharge General General Appearance: Mild distress with eye pain. Resting in the bed Eyes Eye Exam: Sclera White left eye; rt. eye reddened, mild edema tearing noted, Extraocular Movement Intact Pupil nonreactive rt. eye due to blindness. Ears & Nose Ears & Nose Exam: Nasal Mucosa [place] Throat Throat Exam: Oral Mucosa [place] & Moist Neck Neck Exam: Neck Supple, Trachea Midline Pulmonary Resp Exam: Clear Bilaterally, Breath Sounds Equal Cardiology CV Exam: Regular, Normal Sinus Rhythm Gastrointestinal/Abdomen GI Exam: Soft, Non-Tender, Bowel Sounds Present Integumentary Skin Exam: Warm, Dry, Intact, thin turgor Extremeties Extremities Exam: No Edema, Pedal Pulses Palpable Neurologic Neuro Exam: Alert, Awake, Oriented, Speech Clear, Moving All Extremities Psychiatric Psych Exam: Affect and mood Appropriate Responses Objective Remarks I hope I get to go to rehabilitation today. Transfer Summary Case management is working on sniff placement. Checking on [facility]. Hospital Course Pt presented to ED weakness and nausea and vomiting for the last 2 days before admission,. He had been dizzy, poor appetite. No abdominal pain, vomitus is bile colored, no diarrhea, no urinary symptoms other than urinary frequency which is unchanged. No fever, no chills. Had noted mild dyspnea with exertion, no CP. He appeared depressed, states that in November of 2015 he had cataract surgery on right eye and subsequently developed an infection that left him blind. He lives alone but has a significant other. States he takes care of his house and was very active. He was very frustrated about the weakness, has seen PCP and has no definitive answers. Two night ago he climbed onto his roof and after that was very tired and had diffuse body aches. Denies any falls, no recent injuries. Laboratory work up completed in the ED is unremarkable, UA without evidence of infection. Hemodynamically stable, no fevers. Patient has been seen and followed per physical therapy who recommends that he go to a rehabilitation facility for further safety and training. Patient lives alone and with some time but should be able to return home. Labs have been monitored as well as vital signs. patient is stable for discharge Pt Condition on Discharge: Stable Discharge Disposition: Discharge to SNF Discharge Instructions DIET: Follow Instructions for: Heart Healthy Diet Fluid Restrictions: none Activities you can perform: Regular-No Restrictions Other Activity Instructions: fall precautions Follow up Referrals: Neurology - 3 Weeks PCP Follow-up - 1 Week New Medications: Carvedilol (Carvedilol) 3.125 Mg Tab 3.125 MG PO BID #60 Ref 0 TAB Pravastatin (Pravastatin) 10 Mg Tab 10 MG PO HS hypercholesterolemia #30 TAB Sulfacetamide Opth Drops (Sulfacetamide Opth Drops) 10 % Soln 1 DROP RIGHT EYE Q8H conjunctivitis Days 7 ML ([Aspirin Ec]) 325 MG TABEC 325 MG PO DAILY #30 TAB.EC Discontinued Medications: Gemfibrozil (Gemfibrozil) 600 Mg Tab 600 MG PO BIDAC Take 30 minutes prior to breakfast and dinner. #60 Ref 0 TAB Gina Colon Jul 10, 2016 17:40
[2016-07-10] MEDS: FAMOTIDINE 20 MG TAB PO SCH (20:49)
[2016-07-10] MEDS: PRAVASTATIN SOD 10 MG TAB PO SCH (20:49)
[2016-07-10] MEDS: TEMAZEPAM 15 MG CAP PO PRN (23:26)
[2016-07-11] VITALS (8 sets, daily range): BP systolic 109–144; BP diastolic 60–84; PULSE 64–111; RESP 12–20; TEMP 97.2–98.4; O2SAT 90–95
[2016-07-11] MEDS: SULFACETAMIDE SODIUM 10% OPTH SOLN 15 ML BTL RIGHT EYE SCH ×3 (03:22→18:03)
[2016-07-11] MEDS: ASPIRIN EC 325 MG TABEC PO SCH (09:09)
[2016-07-11] MEDS: CARVEDILOL 3.125 MG TAB PO SCH ×2 (09:09→22:15)
--- NOTE | 2016-07-11 10:09 | HHI.PR ---
Subjective History of Present Illness awaiting Insurance approval for SNF placement feels better No more N/V less dizzy . able to ambulate better no headache No new loss of vision or diplopia R eye irritated/itching ch blindness R eye no CP or SOB Offers no other c/o Vitals/Results Intake & Output 07/10/16 07/10/16 07/11/16 15:00 23:00 07:00 Intake Total 240 ml 830 ml Output Total 400 ml 700 ml 1000 ml Balance -400 ml -460 ml -170 ml Intake Oral 240 ml 120 ml IV Total 710 ml Output Urine Total 400 ml 700 ml 1000 ml # Voids 2 Vital Signs Vital Signs Date Time Temp Pulse Resp B/P Pulse Ox O2 Delivery O2 Flow Rate FiO2 07/11/16 09:41 98.2 100 18 123/68 93 07/11/16 03:40 97.9 89 20 144/84 95 07/10/16 23:36 97.6 69 20 130/66 95 07/10/16 20:00 106 07/10/16 19:39 98.6 96 22 129/82 95 07/10/16 16:00 98.7 92 20 117/70 94 07/10/16 12:00 97.4 92 20 115/55 97 CBC/BMP: 07/07/16 0351 Physical Exam General General Appearance: No Acute Distress, Comfortable Eyes Eye Exam: Extraocular Movement Intact Eye Remarks R conjunctival congestion Ears & Nose Ears & Nose Exam: Nasal Mucosa [place] Throat Throat Exam: Oral Mucosa [place] & Moist Neck Neck Exam: Neck Supple, Trachea Midline Pulmonary Resp Exam: Clear Bilaterally, Breath Sounds Equal Cardiology CV Exam: Regular, Normal Sinus Rhythm Gastrointestinal/Abdomen GI Exam: Soft, Non-Tender, Bowel Sounds Present Integumentary Skin Exam: Warm, Dry, Intact Extremeties Extremities Exam: No Edema, Pedal Pulses Palpable Neurologic Neuro Exam: Alert, Awake, Oriented, Speech Clear, Moving All Extremities Psychiatric Psych Exam: Appropriate Responses Assessment/Plan Assessment/Plan Diagnosis: (1) Acute Right PICA CVA (2) Nausea & vomiting d/t above (3) Dizziness d/t above (4) Prostate cancer (5) Abdominal aneurysm 4.7 cm (6) Blind right eye (7) Hx of atrial fibrillation,s/p ablation in SR (8) CAD s/p CABG Assessment and Plan 81 year old male with hx of prostate cancer, was receiving Lupron injections x 4 months which he stopped due to severe weakness. He has declined further treatment including surgery, radiation and chemo. 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 CAD s/p CABG consider starting BB cont ASA cont Statin ins dose of BB for better HR control AA, 4.7 cm, stable -control BP -periodic f/u imaging in [address] findings of subacute fracturing at the anterior inferior pubic rami on the right, no recent falls or injuries -PT eval Hx afib, stable, SR -monitor , SQ lovenox for DVT prophylaxis d/c to SNF when arrangements are made d/w TAR[facility], await insurance approval d/w PT , he is frustrated Paul Schaffer MD Jul 11, 2016 10:09
[2016-07-11] MEDS: ENOXAPARIN SODIUM 40 MG/0.4 ML SYRINGE SQ SCH (11:36)
[2016-07-11] MEDS: SODIUM CHLOR 0.9% 1000 ML INJ 1,000 ML IV SCH (11:39)
[2016-07-11] MEDS: PRAVASTATIN SOD 10 MG TAB PO SCH (22:17)
[2016-07-11] MEDS: FAMOTIDINE 20 MG TAB PO SCH (22:17)
[2016-07-11] MEDS: TEMAZEPAM 15 MG CAP PO PRN (23:54)
[2016-07-12] MEDS: SODIUM CHLOR 0.9% 1000 ML INJ 1,000 ML IV SCH (03:08)
[2016-07-12] MEDS: SULFACETAMIDE SODIUM 10% OPTH SOLN 15 ML BTL RIGHT EYE SCH ×3 (03:29→17:46)
[2016-07-12 03:30] VITALS: BP 122/75; PULSE 68; RESP 12; TEMP 99.4; O2SAT 93
[2016-07-12 07:00] VITALS: PULSE 89
--- NOTE | 2016-07-12 07:55 | HHI.PR ---
Subjective Remarks no cp no sob ambulating better no dizziness no n/v no bm x 4 days no fever no acute changes overnight Objective Objective Results - Vital Signs Date Time Temp Pulse Resp B/P Pulse Ox O2 Delivery O2 Flow Rate FiO2 07/12/16 07:00 89 07/12/16 03:30 99.4 68 12 122/75 93 07/11/16 23:48 97.2 69 20 120/71 95 07/11/16 20:34 98.4 100 12 109/69 90 07/11/16 20:00 111 07/11/16 16:19 98.0 94 18 117/60 95 07/11/16 12:33 98.0 67 18 120/62 95 07/11/16 09:41 98.2 100 18 123/68 93 07/11/16 09:30 64 I/O 07/11/16 07/11/16 07/11/16 07/12/16 07/12/16 07/12/16 07:00 15:00 23:00 07:00 15:00 23:00 Intake Total 830 ml 1720 ml 856 ml Output Total 1000 ml 1055 ml 300 ml Balance -170 ml 665 ml 556 ml Intake Oral 120 ml 520 ml 240 ml IV Total 710 ml 1200 ml 616 ml Output Urine Total 1000 ml 1055 ml 300 ml # Voids 2 2 # Bowel Movements 1 Imaging Last Impressions Abdomen/Pelvis CT 07/06/16 1207 Signed Impressions: Service Date/Time: Wednesday, July 06, 2016 14:00 - CONCLUSION: 1. 4.7 cm abdominal aortic aneurysm without rupture. 2. Nonspecific 1 cm hyperdensity identified in the liver. Statistically it likely represents a cyst or hemangioma but again it is nonspecific on this solitary CT examination. 3. Status post cholecystectomy. 4. Subacute fracturing at the anterior inferior pubic rami on the right. This could be an insufficiency fracture if the patient does not have a corresponding history of trauma. 5. 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 6. Colonic diverticula being most numerous in the sigmoid region. There is some hypertrophy in the sigmoid region. Cj Lo MD Chest X-Ray 07/06/16 0000 Signed Impressions: Service Date/Time: Wednesday, July 06, 2016 13:23 - CONCLUSION: No acute disease. 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 SKIN: No rashes, ecchymoses or lesions. Cool and dry. HEAD: Atraumatic. Normocephalic. No temporal or scalp tenderness. EYES: Right eyer with erythematous conjunctive, blind. Left eye with reactive pupil. ENT: Nose without bleeding, purulent drainage or septal hematoma. Throat without erythema, tonsillar hypertrophy or exudate. Uvula midline. Airway patent. NECK: Trachea midline. No JVD or lymphadenopathy. Supple, nontender, no meningeal signs. CARDIOVASCULAR: Regular rate and rhythm without murmurs, gallops, or rubs. RESPIRATORY: Clear to auscultation. Breath sounds equal bilaterally. No wheezes , rales, or rhonchi. GASTROINTESTINAL: Abdomen soft, non-tender, nondistended. No hepato-splenomegaly , or palpable masses. No guarding. MUSCULOSKELETAL: Extremities without clubbing, cyanosis, or edema. No joint tenderness, effusion, or edema noted. No calf tenderness. Negative Homans sign bilaterally. NEUROLOGICAL: Awake and alert. Cranial nerves II through XII intact. Motor and sensory grossly within normal limits. Five out of 5 muscle strength in all muscle groups. Normal speech. Assessment to: Continue Vascular Central Line Catheter: No A/P Diagnosis: (1) Weakness (2) Nausea & vomiting (3) Dyspnea (4) Prostate cancer (5) Abdominal aneurysm (6) Blind right eye (7) Hx of atrial fibrillation, no current medication (8) Anorexia (9) Stroke Assessment and Plan 81 year old male with hx of prostate cancer, was receiving Lupron injections x 4 months which he stopped due to severe weakness. He has declined further treatment including surgery, radiation and chemo. 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 CAD s/p CABG cont ASA cont Statin continue with BB, 6.25 mg po bid, hold parameters included AA, 4.7 cm, stable -control BP -periodic f/u imaging in [address] findings of subacute fracturing at the anterior inferior pubic rami on the right, no recent falls or injuries -PT eval Hx afib, stable, SR -monitor , add bowel regimen PRN SQ lovenox for DVT prophylaxis d/c to SNF when arrangements are made d/w SW, await insurance approval d/w PT , he is frustrated D/W RN D/W Dr. Schaffer D/W pt This patient was seen by myself and Dr. Schaffer, this note is written on his behalf. Discussed With: Nurse, Other (D/W patient, D/W Dr. Schaffer, D/W CM) Problem Qualifiers (1) Nausea & vomiting: Qualified Code: R11.2 - Non-intractable vomiting with nausea, unspecified vomiting type (2) Dyspnea: Qualified Code: R06.09 - Dyspnea on exertion (3) Stroke: Qualified Code: I63.8 - Cerebrovascular accident (CVA) due to other mechanism Linsey Dumas Jul 12, 2016 07:55
[2016-07-12] MEDS ORDERED: MAGNESIUM HYDROXIDE SUSP 30 ML CUP PO PRN (08:00)
--- NOTE | 2016-07-12 08:22 | HHI.PR ---
Subjective Remarks sr Objective Vital Signs Date Time Temp Pulse Resp B/P Pulse Ox O2 Delivery O2 Flow Rate FiO2 07/12/16 07:00 89 07/12/16 03:30 99.4 68 12 122/75 93 07/11/16 23:48 97.2 69 20 120/71 95 07/11/16 20:34 98.4 100 12 109/69 90 07/11/16 20:00 111 07/11/16 16:19 98.0 94 18 117/60 95 07/11/16 12:33 98.0 67 18 120/62 95 07/11/16 09:41 98.2 100 18 123/68 93 07/11/16 09:30 64 I/O 07/11/16 07/11/16 07/11/16 07/12/16 07/12/16 07/12/16 07:00 15:00 23:00 07:00 15:00 23:00 Intake Total 830 ml 1720 ml 856 ml Output Total 1000 ml 1055 ml 300 ml Balance -170 ml 665 ml 556 ml Intake Oral 120 ml 520 ml 240 ml IV Total 710 ml 1200 ml 616 ml Output Urine Total 1000 ml 1055 ml 300 ml # Voids 2 2 # Bowel Movements 1 Objective Remarks vff os face sym 5/5 not ataxic limbs nad looks great neg rhomberg gait nl Assessment and Plan Assessment and Plan imp r pica infarct asa and statin for now fu holter pending oob will need rehab ? weller due to imbalance can dc today he will need prolonged holter/loop o/p if holter neg here for any occult afib i will fu up o/p for this Ted Fairchild MD Jul 12, 2016 08:22
[2016-07-12] MEDS: CARVEDILOL 3.125 MG TAB PO SCH ×2 (08:43→22:20)
[2016-07-12] MEDS: DOCUSATE SODIUM 100 MG CAP PO SCH ×2 (08:43→22:19)
[2016-07-12] MEDS: ASPIRIN EC 325 MG TABEC PO SCH (08:43)
[2016-07-12 09:27] VITALS: BP 118/62; PULSE 71; RESP 18; TEMP 97.3; O2SAT 98
[2016-07-12] MEDS ORDERED: CARV3.125 PO (09:46)
[2016-07-12 11:19] VITALS: BP 121/69; PULSE 88; RESP 20; TEMP 98.8; O2SAT 94
[2016-07-12] MEDS: ENOXAPARIN SODIUM 40 MG/0.4 ML SYRINGE SQ SCH (11:29)
[2016-07-12 15:44] VITALS: BP 122/74; PULSE 73; RESP 18; TEMP 97.6; O2SAT 94
[2016-07-12 20:47] VITALS: BP 141/72; PULSE 77; RESP 21; TEMP 98.7; O2SAT 98
[2016-07-12] MEDS: ZOLPIDEM TARTRATE 5 MG TAB PO PRN (22:19)
[2016-07-12] MEDS: PRAVASTATIN SOD 10 MG TAB PO SCH (22:19)
[2016-07-12] MEDS: FAMOTIDINE 20 MG TAB PO SCH (22:20)
--- NOTE | 2016-07-12 23:57 | HM ---
Date Performed: 07/09/2016 Time Performed: 11:37:00 HOOKUP DATE: 07/09/16 11:37:00 AM Fri ANALYSIS START TIME: 07/09/2016 11:42:00 AM ANALYSIS END TIME: 07/10/2016 11:05:59 AM PATIENT AGE: 81 PATIENT HEIGHT: 69 PATIENT WEIGHT: 174 DRUG LIST PATIENT DIAGNOSIS: NEURO TEST NARRATIVE: The patient's average heart rate was 90 BPM. Heart rates greater than 120 B PM were noted < 1% of the time. No episodes of bradycardia were noted. No pauses exceeding 2.0 s econds were noted. 4 ventricular ectopics, which represented < 1% of the total beat count, were n oted. The highest ventricular ectopic frequency occurred from 12:00 PM to 01:00 PM Fri. During this time 1 VE(s) occurred. Ventricular ectopics were observed as 4 isolated beat(s) only. No couplets or runs were noted. 17 supraventricular ectopics, which represented < 1% of the total beat count, were noted. The highest supraventricular ectopic frequency occurred from 06:00 AM to 07:00 AM Sat. During this time 10 SVE(s) occurred. No episodes of ST depression (defined as -1.0 mm or more) w ere noted in channel 1. Multiple episodes of ST depression (defined as -1.0 mm or more) were noted in channel 2. The maximum depression of -1.7 mm occurred at 05:03:14 PM Fri. Multiple episodes of S T depression (defined as -1.0 mm or more) were noted in channel 3. The maximum depression of -2.2 m m occurred at 06:23:09 PM Fri. No diary events were reported by the patient. TEST INTERPRETATION: 1) Predominately normal Sinus rhythm 2) Very rare PVC/PAC 3) No episodes of ST depression (defined as -1.0 mm or more) were noted in garsia doris 1. Multiple episodes of ST depression (defined as -1.0 mm or more) were noted in channel 2. Th e maximum depression of -1.7 mm occurred at 05:03:14 PM Fri. Multiple episodes of ST depression (def ined as -1.0 mm or more) were noted in channel 3. The maximum depression of -2.2 mm occurred at 06: 23:09 PM Fri. 4) No diary returned Signed by : Neftali Johnson
[2016-07-13 00:42] VITALS: BP 134/74; PULSE 67; RESP 21; TEMP 98.1; O2SAT 98
[2016-07-13] MEDS: SULFACETAMIDE SODIUM 10% OPTH SOLN 15 ML BTL RIGHT EYE SCH ×3 (03:00→18:46)
[2016-07-13 07:13] VITALS: BP 140/76; PULSE 87; RESP 18; TEMP 98; O2SAT 98
--- NOTE | 2016-07-13 07:43 | HHI.PR ---
Subjective Remarks no cp no sob ambulating better no dizziness no n/v not sleeping much, tried Ambien last night, only slept 3 hours frustrated waiting for SNF placement Objective Objective Results - Vital Signs Date Time Temp Pulse Resp B/P Pulse Ox O2 Delivery O2 Flow Rate FiO2 07/13/16 07:13 98.0 87 18 140/76 98 07/13/16 00:42 98.1 67 21 134/74 98 07/12/16 20:47 98.7 77 21 141/72 98 07/12/16 15:44 97.6 73 18 122/74 94 07/12/16 11:19 98.8 88 20 121/69 94 07/12/16 09:27 97.3 71 18 118/62 98 I/O 07/12/16 07/12/16 07/12/16 07/13/16 07/13/16 07/13/16 07:00 15:00 23:00 07:00 15:00 23:00 Intake Total 856 ml 200 ml Output Total 300 ml Balance 556 ml 200 ml Intake Oral 240 ml IV Total 616 ml 200 ml Output Urine Total 300 ml # Voids 2 Imaging Last Impressions Abdomen/Pelvis CT 07/06/16 1207 Signed Impressions: Service Date/Time: Wednesday, July 06, 2016 14:00 - CONCLUSION: 1. 4.7 cm abdominal aortic aneurysm without rupture. 2. Nonspecific 1 cm hyperdensity identified in the liver. Statistically it likely represents a cyst or hemangioma but again it is nonspecific on this solitary CT examination. 3. Status post cholecystectomy. 4. Subacute fracturing at the anterior inferior pubic rami on the right. This could be an insufficiency fracture if the patient does not have a corresponding history of trauma. 5. 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 6. Colonic diverticula being most numerous in the sigmoid region. There is some hypertrophy in the sigmoid region. Cj Lo MD Chest X-Ray 07/06/16 0000 Signed Impressions: Service Date/Time: Wednesday, July 06, 2016 13:23 - CONCLUSION: No acute disease. Status post CABG Jared Wilcox MD ROS General: Other (12 point ROS completed, negative except as noted above) Physical Exam Physical Exam GENERAL: This is a well-nourished, well-developed patient, in no apparent distress. SKIN: No rashes, ecchymoses or lesions. Cool and dry. HEAD: Atraumatic. Normocephalic. No temporal or scalp tenderness. EYES: Right eye with erythematous conjunctiva, blind. Left eye with reactive pupil. ENT: Nose without bleeding, purulent drainage or septal hematoma. Throat without erythema, tonsillar hypertrophy or exudate. Uvula midline. Airway patent. NECK: Trachea midline. No JVD or lymphadenopathy. Supple, nontender, no meningeal signs. CARDIOVASCULAR: Regular rate and rhythm without murmurs, gallops, or rubs. RESPIRATORY: Clear to auscultation. Breath sounds equal bilaterally. No wheezes , rales, or rhonchi. GASTROINTESTINAL: Abdomen soft, non-tender, nondistended. No hepato-splenomegaly , or palpable masses. No guarding. MUSCULOSKELETAL: Extremities without clubbing, cyanosis, or edema. No joint tenderness, effusion, or edema noted. No calf tenderness. Negative Homans sign bilaterally. NEUROLOGICAL: Awake and alert. Cranial nerves II through XII intact. Motor and sensory grossly within normal limits. Five out of 5 muscle strength in all muscle groups. Normal speech. Urinary Catheter: No Vascular Central Line Catheter: No A/P Diagnosis: (1) Weakness (2) Nausea & vomiting (3) Dyspnea (4) Prostate cancer (5) Abdominal aneurysm (6) Blind right eye (7) Hx of atrial fibrillation, no current medication (8) Anorexia (9) Stroke Assessment and Plan 81 year old male with hx of prostate cancer, was receiving Lupron injections x 4 months which he stopped due to severe weakness. He has declined further treatment including surgery, radiation and chemo. 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 CAD s/p CABG cont ASA cont Statin continue with BB, 6.25 mg po bid, hold parameters included AA, 4.7 cm, stable -control BP -periodic f/u imaging in [address] findings of subacute fracturing at the anterior inferior pubic rami on the right, no recent falls or injuries -PT eval Hx afib, stable, SR -monitor , bowel regimen PRN Ambien PRN insomnia SQ lovenox for DVT prophylaxis d/c to SNF when arrangements are made d/w SW, await insurance approval D/W RN D/W Dr. Schaffer D/W pt D/W CM This patient was seen by myself and Dr. Schaffer, this note is written on his behalf. Discussed With: Nurse, Other (D/W patient, D/W Dr. Schaffer, D/W CM) Problem Qualifiers (1) Nausea & vomiting: Qualified Code: R11.2 - Non-intractable vomiting with nausea, unspecified vomiting type (2) Dyspnea: Qualified Code: R06.09 - Dyspnea on exertion (3) Stroke: Qualified Code: I63.8 - Cerebrovascular accident (CVA) due to other mechanism Linsey Dumas Jul 13, 2016 07:43
[2016-07-13 08:00] VITALS: BP 129/78; PULSE 75; PULSE 97; RESP 18; TEMP 98.4; O2SAT 92
[2016-07-13] MEDS: ASPIRIN EC 325 MG TABEC PO SCH (09:44)
[2016-07-13] MEDS: CARVEDILOL 3.125 MG TAB PO SCH ×2 (09:44→23:21)
[2016-07-13] MEDS: DOCUSATE SODIUM 100 MG CAP PO SCH ×2 (09:44→23:21)
[2016-07-13 12:18] VITALS: BP 122/69; PULSE 78; RESP 18; TEMP 98.4; O2SAT 96
[2016-07-13] MEDS: ENOXAPARIN SODIUM 40 MG/0.4 ML SYRINGE SQ SCH (12:47)
[2016-07-13 16:00] VITALS: BP 96/48; PULSE 103; RESP 18; TEMP 98.5; O2SAT 90
[2016-07-13 19:31] VITALS: BP 114/64; PULSE 104; RESP 20; TEMP 98.7; O2SAT 96
[2016-07-13] MEDS: FAMOTIDINE 20 MG TAB PO SCH (23:19)
[2016-07-13] MEDS: PRAVASTATIN SOD 10 MG TAB PO SCH (23:19)
[2016-07-13] MEDS: ZOLPIDEM TARTRATE 5 MG TAB PO PRN (23:21)
[2016-07-14] VITALS (7 sets, daily range): BP systolic 90–120; BP diastolic 55–77; PULSE 69–77; RESP 18–21; TEMP 97.7–98.1; O2SAT 96–97
[2016-07-14] MEDS: SULFACETAMIDE SODIUM 10% OPTH SOLN 15 ML BTL RIGHT EYE SCH ×2 (00:30→11:47)
--- NOTE | 2016-07-14 09:11 | HHI.PR ---
Subjective History of Present Illness awaiting Insurance approval for SNF placement feels better No more N/V less dizzy . able to ambulate better no headache No new loss of vision or diplopia R eye irritated/itching ch blindness R eye no CP or SOB Offers no other c/o Vitals/Results Intake & Output 07/13/16 07/13/16 07/14/16 15:00 23:00 07:00 Intake Total 360 ml Balance 360 ml Intake Oral 360 ml # Voids 3 # Bowel Movements 1 Vital Signs Vital Signs Date Time Temp Pulse Resp B/P Pulse Ox O2 Delivery O2 Flow Rate FiO2 07/14/16 08:34 98.0 72 20 110/69 96 07/14/16 05:10 97.7 77 21 116/57 97 07/14/16 00:30 75 07/14/16 00:03 98.0 77 18 120/77 97 07/13/16 19:31 98.7 104 20 114/64 96 07/13/16 16:00 98.5 103 18 96/48 90 07/13/16 12:18 98.4 78 18 122/69 96 Physical Exam General General Appearance: No Acute Distress, Comfortable Eyes Eye Exam: Extraocular Movement Intact Eye Remarks R conjunctival congestion Ears & Nose Ears & Nose Exam: Nasal Mucosa [place] Throat Throat Exam: Oral Mucosa [place] & Moist Neck Neck Exam: Neck Supple, Trachea Midline Pulmonary Resp Exam: Clear Bilaterally, Breath Sounds Equal Cardiology CV Exam: Regular, Normal Sinus Rhythm Gastrointestinal/Abdomen GI Exam: Soft, Non-Tender, Bowel Sounds Present Integumentary Skin Exam: Warm, Dry, Intact Extremeties Extremities Exam: No Edema, Pedal Pulses Palpable Neurologic Neuro Exam: Alert, Awake, Oriented, Speech Clear, Moving All Extremities Psychiatric Psych Exam: Appropriate Responses Assessment/Plan Assessment/Plan Diagnosis: (1) Acute Right PICA CVA (2) Nausea & vomiting d/t above (3) Dizziness d/t above (4) Prostate cancer (5) Abdominal aneurysm 4.7 cm (6) Blind right eye (7) Hx of atrial fibrillation,s/p ablation in SR (8) CAD s/p CABG Assessment and Plan 81 year old male with hx of prostate cancer, was receiving Lupron injections x 4 months which he stopped due to severe weakness. He has declined further treatment including surgery, radiation and chemo. 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 CAD s/p CABG consider starting BB cont ASA cont Statin ins dose of BB for better HR control AA, 4.7 cm, stable -control BP -periodic f/u imaging in [address] findings of subacute fracturing at the anterior inferior pubic rami on the right, no recent falls or injuries -PT eval Hx afib, stable, SR -monitor , SQ lovenox for DVT prophylaxis d/c to SNF when arrangements are made d/w SW, await insurance approval d/w PT , he is frustrated Paul Schaffer MD Jul 14, 2016 09:11
[2016-07-14] MEDS: CARVEDILOL 3.125 MG TAB PO SCH (09:19)
[2016-07-14] MEDS: ASPIRIN EC 325 MG TABEC PO SCH (09:19)
[2016-07-14] MEDS: DOCUSATE SODIUM 100 MG CAP PO SCH (09:21)
[2016-07-14] MEDS ORDERED: ACET325T PO (09:43)
[2016-07-14] MEDS ORDERED: DEXA.1%O RIGHT EYE (09:44)
[2016-07-14] MEDS ORDERED: ACETAMINOPHEN 325 MG TAB PO PRN (09:45)
[2016-07-14] MEDS ORDERED: MAGNESIUM CITRATE SOLN 300 ML BTL PO ONE (11:00)
[2016-07-14] MEDS: ENOXAPARIN SODIUM 40 MG/0.4 ML SYRINGE SQ SCH (11:47)
[2016-07-14] MEDS ORDERED: DEXAMETHASONE SOD PHOS 0.1% OPHT SOLN 5 ML BTL RIGHT EYE SCH (12:00)
== END 2016-07-14 17:26 | disposition home or self-care (01) | DRG 65 ==
LOC: NEPC 12:00 → NEDA 16:04 → NEPFCDU 19:09 → OBSVTOIN 07-07 13:01
PROVIDERS: ADMIT Specialist; ATTEND Specialist
DX: I63.9 Cerebral infarction, unspecified (principal); I25.810 Atherosclerosis of coronary artery bypass graft(s) without angina pectoris; R06.00 Dyspnea, unspecified; E86.0 Dehydration; Z95.1 Presence of aortocoronary bypass graft; E78.5 Hyperlipidemia, unspecified; D18.00 Hemangioma unspecified site; F32.9 Major depressive disorder, single episode, unspecified; H54.0 Blindness, both eyes; I71.4 Abdominal aortic aneurysm, without rupture; R11.2 Nausea with vomiting, unspecified; K57.30 Diverticulosis of large intestine without perforation or abscess without bleeding; N40.0 Benign prostatic hyperplasia without lower urinary tract symptoms; Z87.891 Personal history of nicotine dependence; Z85.46 Personal history of malignant neoplasm of prostate
CPT/HCPCS: 70450; 70544; 70548; 70553; 71010; 74177; 80053; 80061; 81001; 82533; 82607; 83605; 83690; 84153; 84154; 84439; 84443; 84484; 85025; 85027; 85610; 85652; 85730; 86140; 93005; 93225; 93226; 93306; 93880; 96374; 96375; A9579; C9113; G0378; G8987-GO; G8988-GO; J1650; J2405; J7030; P9612; Q9967